=== PATIENT | female | born 1965 | race Two or more races ===

== ENCOUNTER 2017-06-29 21:46 | Inpatient (IN) | payer MEDICARE, OTHER ==
[~2017-06-29] VITALS: Ht 165.1 cm; Wt 80.3 kg
[~2017-06-29 21:46] MED LIST: AMLO10TA4 PO; ARIP10TA15 PO; ARIP20TA10 PO; ATEN50TA PO; BENZ1TAB7 PO; BUPR150T5 PO; CALC500T52 PO; CARI250T PO; CHOL100044 PO; CLON0.5T4 PO; DOCU-270 PO; FENT1PAT10 TD; FOLI1TAB16 PO; HALO5TAB8 PO; HYDR200T PO; HYDR200T4 PO; HYDR50CA PO; IBUP-1482 PO; LEVE500T9 PO; LORA0.5T PO; MORP60TA4 PO; OMEP20CA4 PO; OXYC10TA49 PO; PANT40TA2 PO; PHEN100C4 PO; RISP0.253 PO; SENN8.6T60 PO; SERT100T PO; TEMA15CA5 PO; TOPI200T PO; TRAZ-147 PO; TRAZ150T75 PO
--- NOTE | 2017-06-29 23:12 | NUR ---
MEDSURGE 205-1
[2017-06-29 23:30] LABS: BASOPHILS % (AUTO) 0.2 % (0.0-2.0); EOSINOPHILS # (AUTO) 0.1 /CMM (0.0-0.7); EOSINOPHILS % (AUTO) 1.2 % (0.0-6.0); HEMATOCRIT 39 % (33-45); HEMOGLOBIN 13.1 g/dL (11.5-14.8); LYMPHOCYTES # (AUTO) 3.6 /CMM (0.8-4.8); LYMPHOCYTES % (AUTO) 39.4 % (20.0-44.0); MEAN CORPUSCULAR HEMOGLOBIN 31 PG (26.0-33.0); MEAN CORPUSCULAR HGB CONC 34 g/dl (31.0-36.0); MEAN CORPUSCULAR VOLUME 93 fL (82-100); MONOCYTES # (AUTO) 1.1 /CMM (0.1-1.30); MONOCYTES % (AUTO) 12.4 % (2.0-12.0); NEUTROPHILS # (AUTO) 4.2 /CMM (1.8-8.9); NEUTROPHILS % (AUTO) 46.8 % (43.0-81.0); PLATELET COUNT (AUTO) 309 /CMM (150-450); RED BLOOD CELL COUNT(AUTO) 4.22 MIL/uL (4.0-5.2)
[2017-06-29] MEDS ORDERED: FENTANYL PATCH (100 MCG/HR) 100 MCG/HR PATCH.TD72 TD SCH (23:30)
[2017-06-29] MEDS ORDERED: LORAZEPAM 0.5 MG TABLET PO SCH (23:30)
[2017-06-29] MEDS ORDERED: clonazePAM 0.5 MG TABLET PO PRN (23:30)
[2017-06-29 23:42] LABS: CALCIUM, SERUM 9.5 mg/dL (8.5-10.1); CREATININE 0.6 mg/dL (0.6-1.3); POTASSIUM 3.4 mmol/L (3.5-5.1)
[2017-06-29 23:45] VITALS: BP 128/84
[2017-06-29 23:48] LABS: BILIRUBIN,DIRECT 0.1 mg/dL (0.0-0.2); BILIRUBIN,TOTAL 0.2 mg/dL (0.2-1.0); TOTAL PROTEIN, SERUM 7.3 g/dL (6.4-8.2)
[2017-06-30] VITALS: BP 128/84
--- NOTE | 2017-06-30 | NUR ---
RN NOTE; ADMITTED A 52 Y/O, F, A, OX3. BREATHING EVENLY. NO SOB. NAD. W/ C/O PAIN ON RIGHT HIP. SKIN WARM AND DRY. VS:WNL. SKIN CHECK DONE. NEEDS ATTENDED. BED LOW LOCKED. CALL LIGHT WITHIN REACH. WILL CONT TO MONITOR AND WILL F/U W/ MD'S ORDERS.
[2017-06-30] MEDS ORDERED: MAGNESIUM HYDROXIDE 30 ML UDC PO PRN (00:30)
[2017-06-30] MEDS ORDERED: ENOXAPARIN SODIUM 40 MG/0.4 ML DISP.SYRIN SQ SCH (00:30)
[2017-06-30] MEDS ORDERED: MAG HYDROX/AL HYDROX/SIMETH 30 ML UDC PO PRN (00:30)
[2017-06-30] MEDS ORDERED: ZOLPIDEM TARTRATE 5 MG TABLET PO PRN (00:30)
[2017-06-30] MEDS ORDERED: Z GUARD REMEDY 2 OZ OINT TP PRN (00:30)
[2017-06-30] MEDS ORDERED: ACETAMINOPHEN 325 MG TABLET PO PRN (00:30)
[2017-06-30] MEDS ORDERED: HYDROCODONE/APAP 5/325MG 1 EACH TABLET PO PRN (00:30)
[2017-06-30] MEDS ORDERED: ONDANSETRON HCL/PF 4 MG/2 ML VIAL IVP PRN (00:30)
[2017-06-30] MEDS ORDERED: ENOXAPARIN SODIUM 40 MG/0.4 ML DISP.SYRIN SQ ONE (00:33)
[2017-06-30] MEDS ORDERED: HYDROMORPHONE INJ 2 MG/ML DISP.SYRIN ONE (00:33)
[2017-06-30] MEDS: HYDROMORPHONE INJ 2 MG/ML DISP.SYRIN IV PRN ×4 (00:43→19:19)
--- NOTE | 2017-06-30 00:46 | NUR ---
DILAUDID GIVEN ORDERED PER PT'S REQUEST FOR C/O SEVERE R HIP PAIN. WILL CONT TO MONITOR
[2017-06-30 01:02] LABS: INR 1.07 (0.87-1.13); PROTHROMBIN TIME 26.8 SECS (9.5-12.7)
[2017-06-30 01:06] LABS: AMYLASE 68 U/L (25-115); LIPASE 228 U/L (73-393)
[2017-06-30 01:15] LABS: PARTIAL THROMBOPLASTIN TIME > 170 SEC (23-34)
--- NOTE | 2017-06-30 01:25 | NUR ---
PAGED DR. LION TO RELAY THE PTT RESULT . WILL WAIT FOR HER CALL BACK.
--- NOTE | 2017-06-30 02:07 | NUR ---
PAGED DR LION AGAIN AND RELAYED THE CRITICALLY HIGH APTT RESULT. PER THIS SHOULD NOT BE CORRECT AND REDRAW THE BLOOD. PLACED AN ORDER FOR STAT PTT AND INFORMED THE HISTORIC SITES SUPERVISOR. WILL CONT TO MONITOR .
[2017-06-30] MEDS ORDERED: LORAZEPAM 0.5 MG TABLET ONE (02:57)
--- NOTE | 2017-06-30 03:00 | NUR ---
CALLED [facility] AND REQUESTED THE LIST OF ACTIVE MEDICATIONS TO BE FAXED TO THE HOSPITAL.
--- NOTE | 2017-06-30 03:45 | NUR ---
PT WAS SEEN AND EXAMINED BY DR. LION. THE LIST OF THE MEDICATIONS FROM [facility] WAS SHOWN TO DR. LION. PER MD TO CONTINUE ALL HOME MEDS AND DISCONTINUE WHATEVER HAS ALREADY D/C'd . WILL CONT TO MONITOR .
--- NOTE | 2017-06-30 06:36 | NUR ---
PT IN BED DOZING INTERMITTENTLY. BREATHING EVENLY. NO SOB. NAD. PAIN UNDER CONTROL W/ USE OF PAIN MEDICATIONS. NEEDS ATTENDED. ASSISTED W/ ADLS. CALL LIGHT WITHIN REACH. WILL CONT TO MONITOR AND WILL ENDORSE TO AM SHIFT FOR RIVER.
[2017-06-30 06:40] LABS: APPEARANCE,URINE CLEAR (CLEAR); BILIRUBIN,URINE NEGATIVE (NEGATIVE); BLOOD, URINE NEGATIVE Ery/uL (NEGATIVE); COLOR,URINE YELLOW (YELLOW); KETONES,URINE NEGATIVE (NEGATIVE); LEUKOCYTE ESTERASE ,URINE NEGATIVE (NEGATIVE); NITRITE, URINE NEGATIVE (NEGATIVE); PH,URINE 6.5 (5.0-8.0); PROTEIN,URINE NEGATIVE (NEGATIVE); UGLUCOSE NEGATIVE (NEGATIVE); UROBILINOGEN,URINE 0.2 EU/dL (0.2)
--- NOTE | 2017-06-30 07:09 | NUR ---
DILAUDID GIVEN ORDERED PER PT'S REQUEST FOR C/O SEVERE R HIP PAIN. WILL CONT TO MONITOR
[2017-06-30] MEDS: IPRATROPIUM NEB FS 0.5 MG/2.5 ML AMPUL.NEB NEB SCH ×3 (07:19→19:20)
[2017-06-30] MEDS: ALBUTEROL FS 2.5 MG/3 ML VIAL.NEB NEB SCH ×3 (07:19→19:20)
[2017-06-30] MEDS: PANTOPRAZOLE 40 MG TABLET.DR PO SCH (07:55)
[2017-06-30 08:00] VITALS: BP 124/66
[2017-06-30] MEDS: ARIPIPRAZOLE 5 MG TABLET PO SCH (08:49)
[2017-06-30] MEDS: SERTRALINE HCL 50 MG TABLET PO SCH (08:49)
[2017-06-30] MEDS: LEVETIRACETAM (250 MG) 250 MG TABLET PO SCH ×2 (08:49→21:14)
[2017-06-30] MEDS: BACLOFEN (10 MG) 10 MG TABLET PO SCH ×2 (08:49→16:23)
[2017-06-30] MEDS: CHOLECALCIFEROL 1,000 UNIT TABLET (VIT D3) PO SCH (08:49)
[2017-06-30] MEDS ORDERED: DOCUSATE SODIUM 100 MG CAPSULE PO SCH (09:00)
[2017-06-30] MEDS ORDERED: HYDROXYCHLOROQUINE 200 MG TABLET PO SCH ×2 (09:00)
[2017-06-30] MEDS ORDERED: HALOPERIDOL 5 MG TABLET PO SCH (09:00)
[2017-06-30] MEDS ORDERED: buPROPion SR 150 MG TABLET.ER PO SCH (09:00)
[2017-06-30] MEDS ORDERED: ARIPIPRAZOLE 20 MG PO SCH (09:00)
[2017-06-30] MEDS ORDERED: FOLIC ACID 1 MG TABLET PO SCH (09:00)
[2017-06-30] MEDS ORDERED: SENNOSIDES 8.6 MG TABLET PO SCH (09:00)
[2017-06-30] MEDS ORDERED: BENZTROPINE MESYLATE (1 MG) 1 MG TABLET PO SCH (09:00)
[2017-06-30] MEDS ORDERED: AMLODIPINE BESYLATE 10 MG TABLET PO SCH (09:00)
[2017-06-30] MEDS ORDERED: CALCIUM CARBONATE (1250) 500 MG TABLET PO SCH (09:00)
[2017-06-30] MEDS ORDERED: ATENOLOL 50 MG TABLET PO SCH (09:00)
[2017-06-30] MEDS ORDERED: risperiDONE 0.25 MG TABLET PO SCH ×2 (09:00→22:00)
[2017-06-30] MEDS ORDERED: hydrOXYzine PAMOATE 50 MG CAPSULE PO SCH (09:00)
[2017-06-30 16:00] VITALS: BP 121/70
--- NOTE | 2017-06-30 18:43 | NUR ---
RN CLOSING NOTES NO SIGNIFICANT CHANGES IN PATIENT CONDITION THROUGHOUT THE SHIFT. NO SOB OR DISTRESS NOTED AT THIS TIME. PATIENT DENIES SIGNIFICANT PAIN AT THIS TIME. BED IN A LOW POSITION, CALL LIGHT WITHIN PATIENT REACH. WILL ENDORSE FOR RIVER.
--- NOTE | 2017-06-30 19:00 | NUR ---
MS/RN OPENING NOTES PT RECEIVED IN BED. A/O X 3. TOLERATING ROOM AIR, BREATHING EVEN AND UNLABORED, NO APPARENT SIGN OF DISTRESS. PT APPEARS CALM. BED IN LOW/LOCKED POSITION WITH CALL LIGHT IN REACH. SIDE RAILS UPX2 AND BED ALARM ON FOR SAFETY. WILL CONTINUE TO MONITOR
[2017-06-30 20:00] VITALS: BP 94/46
[2017-06-30 20:06] VITALS: BP 94/46
[2017-06-30] MEDS: TOPIRAMATE 100 MG TABLET PO SCH (21:13)
[2017-06-30] MEDS: PHENYTOIN EXTENDED RELEASE 100 MG CAPSULE PO SCH (21:14)
[2017-06-30] MEDS: TEMAZEPAM 15 MG CAPSULE PO SCH (21:14)
[2017-06-30] MEDS: LORAZEPAM 0.5 MG TABLET PO PRN (21:15)
[2017-06-30] MEDS: ENOXAPARIN SODIUM 40 MG/0.4 ML DISP.SYRIN SQ SCH (21:16)
[2017-06-30] MEDS ORDERED: Medication Not On Formulary EA (Sertraline Hcl (Zoloft) 200 MG) PO SCH (22:00)
[2017-06-30] MEDS ORDERED: PHENYTOIN EXTENDED RELEASE 100 MG CAPSULE PO SCH (22:00)
[2017-07-01] MEDS: IPRATROPIUM NEB FS 0.5 MG/2.5 ML AMPUL.NEB NEB SCH ×4 (01:30→20:37)
[2017-07-01] MEDS: ALBUTEROL FS 2.5 MG/3 ML VIAL.NEB NEB SCH ×4 (01:30→20:37)
--- NOTE | 2017-07-01 01:50 | NUR ---
Pt sleeping at this ,mo Addendum: 07/01/17 at 0151 by TRACEY HARDIN RT patient want to continue resting. no sob or resp distress noted rn aware.
[2017-07-01] MEDS: HYDROMORPHONE INJ 2 MG/ML DISP.SYRIN IV PRN ×4 (02:51→21:22)
--- NOTE | 2017-07-01 06:30 | NUR ---
MS RN CLOSING NOTES PATIENT COMFORTABLY ASLEEP AND EASILY AWAKEN, HOB ELEVATED FOR BETTER LUNG EXPANSION. PATIENT DENIES PAIN AT THIS TIME. RESPIRATIONS EVEN AND UNLABORED. NO S/S OF ACUTE DISTRESS, NO SOB, AFEBRILE, ALL NURSING CARE RENDERED, NEEDS ATTENDED AND ANTICIPATED, KEPT CLEAN AND DRY AND COMFORTABLE, GOOD SKIN ARE PROVIDED. FREQUENT VISUAL CHECK DONE FOR SAFETY EVERY 2 HOURS. SAFE HAZARD FREE ENVIRONMENT PROVIDED. CALL LIGHT WITHIN EASY TO REACH, ON LOW BED AT ALL TIMES TO ENSURE SAFETY, WILL ENDORSE TO THE NEXT SHIFT CONTINUE PLAN OF CARE.
[2017-07-01 06:49] VITALS: BP 110/61
--- NOTE | 2017-07-01 07:26 | NUR ---
MS RN OPENING NOTES PATIENT RECEIVED AWAKE N BED IN ACUTE SIGNS OF DISTRESS. A/O X 3 AND VERBALLY RESPONSIVE, NO C/O PAIN OR DISCOMFORTS AT THIS TIME. ON ROOM AIR, BREATHING EVEN AND UNLABORED. IV ACCESS ON LEFT AC INTACT AND PATENT, HL ONLY. BED IN LOW/LOCKED POSITION WITH CALL LIGHT IN REACH. SIDE RAILS UP X2 AND BED ALARM ON FOR SAFETY. WILL CONTINUE TO MONITOR PT ACCORDINGLY.
[2017-07-01 08:00] VITALS: BP 126/66
[2017-07-01] MEDS: PANTOPRAZOLE 40 MG TABLET.DR PO SCH (08:15)
[2017-07-01] MEDS: SERTRALINE HCL 50 MG TABLET PO SCH (08:15)
[2017-07-01] MEDS: BACLOFEN (10 MG) 10 MG TABLET PO SCH ×2 (08:16→17:23)
[2017-07-01] MEDS: ARIPIPRAZOLE 5 MG TABLET PO SCH (08:16)
[2017-07-01] MEDS: LEVETIRACETAM (250 MG) 250 MG TABLET PO SCH ×2 (08:16→21:28)
[2017-07-01] MEDS: CHOLECALCIFEROL 1,000 UNIT TABLET (VIT D3) PO SCH (08:17)
[2017-07-01 11:53] LABS: BASOPHILS % (AUTO) 0.5 % (0.0-2.0); EOSINOPHILS # (AUTO) 0.1 /CMM (0.0-0.7); EOSINOPHILS % (AUTO) 1.4 % (0.0-6.0); HEMATOCRIT 40 % (33-45); HEMOGLOBIN 13.3 g/dL (11.5-14.8); LYMPHOCYTES # (AUTO) 3.7 /CMM (0.8-4.8); LYMPHOCYTES % (AUTO) 43.8 % (20.0-44.0); MEAN CORPUSCULAR HEMOGLOBIN 31 PG (26.0-33.0); MEAN CORPUSCULAR HGB CONC 33 g/dl (31.0-36.0); MEAN CORPUSCULAR VOLUME 94 fL (82-100); MONOCYTES # (AUTO) 0.9 /CMM (0.1-1.30); MONOCYTES % (AUTO) 11.2 % (2.0-12.0); NEUTROPHILS # (AUTO) 3.6 /CMM (1.8-8.9); NEUTROPHILS % (AUTO) 43.1 % (43.0-81.0); PLATELET COUNT (AUTO) 307 /CMM (150-450); RDW COEFFICIENT OF VARIATION 12.9 (11.5-15.0); RED BLOOD CELL COUNT(AUTO) 4.27 MIL/uL (4.0-5.2); WHITE BLOOD COUNT (AUTO) 8.4 K/uL (4.3-11.0)
[2017-07-01 12:11] LABS: ALBUMIN 3.7 g/dL (3.4-5.0); BILIRUBIN,TOTAL 0.2 mg/dL (0.2-1.0); CALCIUM, SERUM 9.3 mg/dL (8.5-10.1); CREATININE 0.6 mg/dL (0.6-1.3); MAGNESIUM 1.9 mg/dL (1.8-2.4); PHOSPHORUS 3.9 mg/dL (2.5-4.9); POTASSIUM 3.5 mmol/L (3.5-5.1); TOTAL PROTEIN, SERUM 6.8 g/dL (6.4-8.2)
[2017-07-01 12:16] LABS: THYROID STIMULATING HORMONE 2.031 uIU/mL (0.358-3.74)
[2017-07-01 16:00] VITALS: BP 120/66
--- NOTE | 2017-07-01 19:00 | NUR ---
MS/RN OPENING NOTES PT RECEIVED IN BED. A/O X 3. STABLE CONDITION. BREATHING EVEN AND UNLABORED, TOLERATING ROOM AIR 99% NO APPARENT SIGN OF DISTRESS. BED IN LOW/LOCKED POSITION WITH CALL LIGHT IN REACH. SIDE RAILS UPX2 AND BED ALARM ON FOR SAFETY. WILL CONTINUE TO MONITOR
--- NOTE | 2017-07-01 19:01 | NUR ---
MS RN CLOSING NOTES PATIENT IN BED RESTING @ MODERATE HIGH BACKREST POSITION WATCHING TV. A/O X 3 AND VERBALLY RESPONSIVE. PT C/O PAIN TO RIGHT HIP ON AND OFF DURING THE DAY, PRN DILAUDID 2MG GIVEN IVP WITH POSITIVE RESULTS. ALL NEEDS AND CARE ATTENDED WELL. . ON ROOM AIR, BREATHING EVEN AND UNLABORED. IV ACCESS ON LEFT AC INTACT AND PATENT, HL ONLY. KEPT BED IN LOW/LOCKED POSITION WITH CALL LIGHT AND BEDSIDE TABLE IN REACH. SIDE RAILS UP X2 AND BED ALARM ON FOR SAFETY. WILL ENDOSRED TO TOOLING MECHANIC NURSE FOR RIVER. .
[2017-07-01 20:00] VITALS: BP 125/67
[2017-07-01] MEDS: TOPIRAMATE 100 MG TABLET PO SCH (21:25)
[2017-07-01] MEDS: TEMAZEPAM 15 MG CAPSULE PO SCH (21:26)
[2017-07-01] MEDS: PHENYTOIN EXTENDED RELEASE 100 MG CAPSULE PO SCH (21:26)
[2017-07-01] MEDS: ENOXAPARIN SODIUM 40 MG/0.4 ML DISP.SYRIN SQ SCH (21:28)
[2017-07-02] MEDS: IPRATROPIUM NEB FS 0.5 MG/2.5 ML AMPUL.NEB NEB SCH ×3 (02:04→13:46)
[2017-07-02] MEDS: ALBUTEROL FS 2.5 MG/3 ML VIAL.NEB NEB SCH ×3 (02:04→13:46)
[2017-07-02] MEDS: HYDROMORPHONE INJ 2 MG/ML DISP.SYRIN IV PRN ×3 (04:00→16:16)
--- NOTE | 2017-07-02 06:40 | NUR ---
MS RN CLOSING NOTES PT ASLEEP EASILY AWAKEN, HEAD OF BED ELEVATED FOR BETTER LUNG EXPANSION. IN STABLE CONDITION. TOLERATING ROOM AIR 02 SAT AT 99%. NO S/S OF ACUTE DISTRESS, NO SOB, RESPIRATIONS EVEN AND UNLABORED. PATIENT DENIES PAIN AT THIS TIME.. AFEBRILE, ALL NURSING CARE RENDERED, NEEDS ATTENDED AND ANTICIPATED, KEPT CLEAN AND DRY AND COMFORTABLE, GOOD SKIN CARE PROVIDED. SAFETY HAZARD FREE ENVIRONMENT.. CALL LIGHT WITHIN EASY TO REACH, ON LOW BED AT ALL TIMES TO ENSURE SAFETY, WILL ENDORSE TO THE NEXT SHIFT CONTINUE PLAN OF CARE.
--- NOTE | 2017-07-02 07:43 | NUR ---
MS RN OPENING NOTES PATIENT RECEIVED AWAKE AND COMFORTABLY RESTING IN BED. A/O X 3, ABLE TO VERBALIZED NEEDS, NO C/O PAIN OR DISCOMFORTS AT THIS TIME. ON ROOM AIR, BREATHING EVEN AND UNLABORED. IV ACCESS ON LEFT AC INTACT AND PATENT, HL ONLY. BED IN LOW/LOCKED POSITION. BEDSIDE TABLE AND CALL LIGHT WITH IN REACH OF PT. SIDE RAILS UP X2 AND BED ALARM ON FOR SAFETY. WILL CONTINUE TO MONITOR PT ACCORDINGLY.
[2017-07-02 08:00] VITALS: BP 112/64
[2017-07-02] MEDS: ARIPIPRAZOLE 5 MG TABLET PO SCH (08:10)
[2017-07-02] MEDS: PANTOPRAZOLE 40 MG TABLET.DR PO SCH (08:10)
[2017-07-02] MEDS: LEVETIRACETAM (250 MG) 250 MG TABLET PO SCH (08:10)
[2017-07-02] MEDS: SERTRALINE HCL 50 MG TABLET PO SCH (08:10)
[2017-07-02] MEDS: BACLOFEN (10 MG) 10 MG TABLET PO SCH ×2 (08:10→16:17)
[2017-07-02] MEDS: CHOLECALCIFEROL 1,000 UNIT TABLET (VIT D3) PO SCH (08:11)
[2017-07-02] MEDS ORDERED: HALO5TAB8 PO (10:39)
[2017-07-02] MEDS ORDERED: IBUP-1482 PO (10:39)
[2017-07-02] MEDS: LORAZEPAM 0.5 MG TABLET PO PRN (11:40)
--- NOTE | 2017-07-02 11:41 | NUR ---
RN NOTES PATIENT NOTED RESTLESS AND ANXIOUS , PRN ATIVAN 0.5MG GIVEN ORDERED. WILL CONTINUE TO MONITOR.
[2017-07-02 16:00] VITALS: BP 115/69
--- NOTE | 2017-07-02 18:23 | NUR ---
RN DISCHARGED NOTES PT DISCHARGED TO [facility] IN STABLE CONDITION. REPORT GIVEN TO BECKY NURSE RELIABILITY TECHNOLOGIST. PT JUST LEFT UNIT VIA GUNEY ACCOMPANIED BY 2 EMT'S. A/O X3, NO ACUTE SIGNS OF DISTRESS, NO C/O PAIN OR DISCOMFORTS VOICED DURING DISCHARGE. V/S TAKEN AND RECORDED. SKIN IS INTACT. NO BELONGINGS BROUGHT WITH HER WHEN ADMITTED. NO FLU/PNA VACCINES GIVEN PT RECEIVED THEM ALREADY THIS YEAR. HEALTH TEACHINGS GIVEN AND VERBALIZED UNDERSTANDING. MD AND NURSE RELIABILITY TECHNOLOGIST AWARE OF DISCHARGE.
== END 2017-07-02 18:31 | DRG 556 ==
LOC: ER 21:48 → MEDSG2 23:42
PROVIDERS: ADMIT Internal Medicine; ATTEND Internal Medicine
DX: M25.551 Pain in right hip (principal); E87.8 Other disorders of electrolyte and fluid balance, not elsewhere classified; I11.0 Hypertensive heart disease with heart failure; I50.32 Chronic diastolic (congestive) heart failure; F20.9 Schizophrenia, unspecified; G40.909 Epilepsy, unspecified, not intractable, without status epilepticus; J44.9 Chronic obstructive pulmonary disease, unspecified; K21.9 Gastro-esophageal reflux disease without esophagitis; Z87.891 Personal history of nicotine dependence; Z96.641 Presence of right artificial hip joint; Z88.0 Allergy status to penicillin
CPT/HCPCS: 36415; 71010-TC; 73502; 80048-TC; 80053-TC; 80061-TC; 80076-TC; 81000-TC; 82150-TC; 82746; 83540-TC; 83690-TC; 83735-TC; 84100-TC; 84443-TC; 85025-TC; 85730-TC; 87040-TC; 87081-TC; 87086-TC; 93307-TC; 93970-TC; A4606; J1170; J1650; Q0177; Z7610

== ENCOUNTER 2019-04-21 16:32 | Emergency (ER) | payer MEDICARE, OTHER ==
[~2019-04-21] VITALS: Ht 165.1 cm; Wt 111.6 kg
[2019-04-21 16:32] VITALS: BP 154/94
[~2019-04-21 16:32] MED LIST changes: -ARIP10TA15 PO; +ARIP10TA9 PO; +CLON0.5T12 PO; -CLON0.5T4 PO; -FENT1PAT10 TD; -HYDR200T PO; +HYDR200T81 PO; -IBUP-1482 PO; +IBUP-1957 PO; -TRAZ-147 PO; +TRAZ-214 PO
[2019-04-21] MEDS ORDERED: DILT120T2 PO (16:52)
[2019-04-21] MEDS ORDERED: FURO40TA5 PO (16:52)
[2019-04-21] MEDS ORDERED: IBUP-1953 PO (16:52)
[2019-04-21] MEDS ORDERED: LURA80TA PO (16:52)
[2019-04-21] MEDS ORDERED: BENZ1TAB7 PO (16:52)
[2019-04-21] MEDS ORDERED: QUET25TA PO (16:52)
[2019-04-21] MEDS ORDERED: ASPI-1152 PO (16:52)
[2019-04-21] MEDS ORDERED: MULT-24 PO (16:52)
[2019-04-21] MEDS ORDERED: DICL100G16 TP (16:52)
[2019-04-21] MEDS ORDERED: HYDR-4354 PO (16:52)
[2019-04-21] MEDS ORDERED: MAGN400O6 PO (16:57)
[2019-04-21] MEDS ORDERED: ZOLP10TA6 PO (16:57)
[2019-04-21] MEDS ORDERED: HYDR4TAB57 PO (16:57)
[2019-04-21] MEDS ORDERED: IPRA3AMP23 IH (16:57)
[2019-04-21] MEDS ORDERED: MORP20SO PO (16:58)
[2019-04-21 17:03] LABS: APPEARANCE,URINE Turbid (CLEAR); BILIRUBIN,URINE Negative (NEGATIVE); BLOOD, URINE Large Ery/uL (NEGATIVE); COLOR,URINE Red (YELLOW); KETONES,URINE Negative (NEGATIVE); LEUKOCYTE ESTERASE ,URINE Moderate (NEGATIVE); NITRITE, URINE Negative (NEGATIVE); PH,URINE 5.5 (5.0-8.0); PROTEIN,URINE Trace mg/dl (NEGATIVE); UGLUCOSE Negative (NEGATIVE); UROBILINOGEN,URINE 0.2 EU/dL (0.2)
[2019-04-21 17:25] LABS: RBC,URINE TOO NUMEROUS TO COUN /HPF (0-2)
[2019-04-21 17:26] LABS: BACTERIA,URINE Many /HPF (None Seen); SQUAMOUS EPITHELIAL CELL,UR Few /HPF (None Seen)
[2019-04-21] MEDS ORDERED: LEVOFLOXACIN (750 MG) 750 MG TABLET PO SCH (17:30)
[2019-04-21] MEDS ORDERED: HYDROCODONE/APAP 10/325MG 1 EA TABLET ONE (17:44)
[2019-04-21] MEDS ORDERED: LEVOFLOXACIN (750 MG) 750 MG TABLET ONE (17:45)
--- NOTE | 2019-04-21 17:54 | NUR ---
[facility] MUN[facility] 1930 TRIP# [id number]
[2019-04-21] MEDS ORDERED: HYDROCODONE/APAP 10/325MG 1 EA TABLET PO ONE (18:00)
== END 2019-04-21 19:25 ==
LOC: ER 16:34
DX: N39.0 Urinary tract infection, site not specified (principal); E66.01 Morbid (severe) obesity due to excess calories; M32.9 Systemic lupus erythematosus, unspecified; I10 Essential (primary) hypertension; M19.90 Unspecified osteoarthritis, unspecified site; F17.200 Nicotine dependence, unspecified, uncomplicated; Z98.890 Other specified postprocedural states; Z88.0 Allergy status to penicillin; Z88.5 Allergy status to narcotic agent; Z79.899 Other long term (current) drug therapy; Z79.82 Long term (current) use of aspirin; Z68.41 Body mass index [BMI] 40.0-44.9, adult
CPT/HCPCS: 81000-TC; 87086-TC; 87186-TC

== ENCOUNTER 2019-05-08 16:52 | Emergency (ER) | payer MEDICARE, OTHER ==
[~2019-05-08] VITALS: Ht 165.1 cm; Wt 112.5 kg
[~2019-05-08 16:52] MED LIST changes: -AMLO10TA4 PO; -ARIP10TA9 PO; -ARIP20TA10 PO; +ASPI-1152 PO; -ATEN50TA PO; -BUPR150T5 PO; -CALC500T52 PO; -CARI250T PO; -CHOL100044 PO; -CLON0.5T12 PO; +DICL100G16 TP; +DILT120T2 PO; -DOCU-270 PO; -FOLI1TAB16 PO; +FURO40TA5 PO; -HALO5TAB8 PO; +HYDR-4354 PO; -HYDR200T4 PO; -HYDR200T81 PO; +HYDR4TAB57 PO; -HYDR50CA PO; +IBUP-1953 PO; -IBUP-1957 PO; +IPRA3AMP23 IH; +LURA80TA PO; +MAGN400O6 PO; +MORP20SO PO; -MORP60TA4 PO; +MULT-24 PO; -OMEP20CA4 PO; -OXYC10TA49 PO; -PHEN100C4 PO; +QUET25TA PO; -RISP0.253 PO; -SENN8.6T60 PO; -SERT100T PO; -TEMA15CA5 PO; -TOPI200T PO; -TRAZ-214 PO; -TRAZ150T75 PO; +ZOLP10TA6 PO
--- NOTE | 2019-05-08 17:00 | NUR ---
[id number] FROM [facility], HAD SYNCOPAL EPISODE "SHOOK THEN BECAME UNRESPONSIVE", -TRAUMA. TO ER BED 10, HOOKED TO MONITOR, CHANGED TO GOWN, PROVIDED W WARM BLANKET, AWAITING MD LOPEZ.
--- NOTE | 2019-05-08 17:08 | NUR ---
DR HARRIS AT BEDSIDE
[2019-05-08] MEDS ORDERED: IBUP-1953 PO (17:20)
[2019-05-08] MEDS ORDERED: BENZ1TAB7 PO (17:20)
[2019-05-08] MEDS ORDERED: HYDR4TAB57 PO (17:20)
[2019-05-08] MEDS ORDERED: MULT-439 PO (17:20)
[2019-05-08] MEDS ORDERED: SENN-168 PO (17:21)
[2019-05-08] MEDS ORDERED: PROM118S4 PO (17:21)
[2019-05-08 18:13] LABS: BASOPHILS # (AUTO) 0.1 /CMM (0.0-0.2); BASOPHILS % (AUTO) 0.7 % (0.0-2.0); EOSINOPHILS % (AUTO) 2.9 % (0.0-6.0); HEMATOCRIT 34 % (33-45); HEMOGLOBIN 11.4 g/dL (11.5-14.8); LYMPHOCYTES # (AUTO) 4.1 /CMM (0.8-4.8); LYMPHOCYTES % (AUTO) 35.9 % (20.0-44.0); MEAN CORPUSCULAR HGB CONC 34 g/dl (31.0-36.0); MEAN CORPUSCULAR VOLUME 94 fL (82-100); MONOCYTES # (AUTO) 1.7 /CMM (0.1-1.30); MONOCYTES % (AUTO) 14.5 % (2.0-12.0); NEUTROPHILS # (AUTO) 5.2 /CMM (1.8-8.9); PLATELET COUNT (AUTO) 320 /CMM (150-450); RED BLOOD CELL COUNT(AUTO) 3.56 MIL/uL (4.0-5.2); WHITE BLOOD COUNT (AUTO) 11.4 K/uL (4.3-11.0)
[2019-05-08 18:22] LABS: CALCIUM, SERUM 9.2 mg/dL (8.5-10.1); CARBON DIOXIDE 28 mmol/L (21-32); CHLORIDE 100 mmol/L (98-107); CREATININE 0.7 mg/dL (0.6-1.3); GLUCOSE 95 mg/dL (74-106); POTASSIUM 3.8 mmol/L (3.5-5.1); SODIUM SERUM 130 mmol/L (136-145); UREA NITROGEN, BLOOD 16 mg/dL (7-18)
[2019-05-08 18:27] LABS: ALANINE AMINOTRANSFERASE 13 U/L (12-78); ALKALINE PHOSPHATASE 64 U/L (46-116); ASPARTATE AMINOTRANSFERASE 22 U/L (15-37); BILIRUBIN,DIRECT 0.1 mg/dL (0.0-0.2); BILIRUBIN,TOTAL 0.3 mg/dL (0.2-1.0); TOTAL PROTEIN, SERUM 6.6 g/dL (6.4-8.2)
[2019-05-08] MEDS ORDERED: ONDANSETRON HCL/PF 4 MG/2 ML VIAL ONE (18:27)
[2019-05-08] MEDS ORDERED: HYDROMORPHONE 1 MG/1 ML DISP.SYRIN ONE ×2 (18:27→21:58)
[2019-05-08] MEDS ORDERED: HYDROMORPHONE 1 MG/1 ML DISP.SYRIN IV ONE ×2 (18:30→22:00)
[2019-05-08] MEDS ORDERED: IV NS 0.9% 1,000 ML BAG IV ONE (18:30)
[2019-05-08] MEDS ORDERED: ONDANSETRON HCL/PF - ER 4 MG/2 ML VIAL IV ONE (18:30)
--- NOTE | 2019-05-08 19:15 | NUR ---
REPORT GIVEN TO JESSA ROMEO FOR RIVER
--- NOTE | 2019-05-08 19:15 | NUR ---
REPORT GIVEN TO JESSA ROMEO FOR RIVER
--- NOTE | 2019-05-08 19:30 | NUR ---
PT TO CT ON [place]
[2019-05-08] MEDS ORDERED: IOHEXOL-350 100 ML VIAL IV ONE (19:35)
[2019-05-08] MEDS ORDERED: KETOROLAC TROMETHAMINE INJ 30 MG/ML VIAL ONE (20:51)
[2019-05-08] MEDS ORDERED: KETOROLAC TROMETHAMINE INJ 30 MG/ML VIAL IV ONE (21:00)
--- NOTE | 2019-05-08 21:12 | NUR ---
CALLED [facility] FOR TRANSPORTATION. ETA 2200, TRIP [id number]
--- NOTE | 2019-05-08 22:09 | NUR ---
CALLED FACILITY TO INFORM PT IS COMING BACK TO FACILITY. SPOKE WITH GHASSAN, CAREGIVER AT THE FACILITY
--- NOTE | 2019-05-08 22:17 | NUR ---
[facility] #[phone] AT BEDSIDE FOR TRANSPORT BACK TO [facility]. PT IS STABLE FOR TRANSPORT. NAD NOTED. REPORT GIVEN
[2019-05-08 22:19] VITALS: BP 111/67
== END 2019-05-08 22:19 | disposition home or self-care (01) ==
LOC: ER 16:53
DX: G40.909 Epilepsy, unspecified, not intractable, without status epilepticus (principal); R51 Headache; I10 Essential (primary) hypertension; M32.9 Systemic lupus erythematosus, unspecified; F17.200 Nicotine dependence, unspecified, uncomplicated; Z98.890 Other specified postprocedural states; Z88.0 Allergy status to penicillin; Z88.5 Allergy status to narcotic agent; Z79.899 Other long term (current) drug therapy; Z79.82 Long term (current) use of aspirin
CPT/HCPCS: 36415; 70450; 70496; 71045; 80048; 80076; 84484; 85025; 85730; 93005; 96374; 96375; 96376; 99284; J1170 ×2; J1885; J2405 ×2; J7030; Q9967

== ENCOUNTER 2020-01-07 20:29 | Inpatient (IN) | payer MEDICARE, OTHER ==
[~2020-01-07] VITALS: Ht 165.1 cm; Wt 101.2 kg
[~2020-01-07 20:29] MED LIST changes: -MORP20SO PO; -MULT-24 PO; +MULT-439 PO; +PROM118S5 PO; +SENN-261 PO
--- NOTE | 2020-01-07 20:49 | NUR ---
BIB PA C/O R SHOULDER BLADE REDNESS, SWELLING AND BLISTER X4-5 DAYS. PER PT IT STARTED A PIMPLE LIKE AND WORSENED IN THE PAST 4-5DAYS.
--- NOTE | 2020-01-07 21:07 | NUR ---
PAGED DR. NUR
--- NOTE | 2020-01-07 21:14 | NUR ---
LAC 20G PIV LINE STARTED. UNABLE TO DRAW BLOOD . FLOOR GRINDER AT THE BED SIDE FOR BLOOD DRAW
[2020-01-07] MEDS ORDERED: POTA20TA83 PO (21:30)
[2020-01-07] MEDS ORDERED: CLINDAMYCIN IV RTU IN D5W 900 MG/50 ML PIGGYBACK IV ONE (21:30)
[2020-01-07] MEDS ORDERED: CLINDAMYCIN 900 MG/6 ML VIAL ONE ×2 (21:32→21:33)
[2020-01-07 21:44] LABS: BASOPHILS # (AUTO) 0.1 /CMM (0.0-0.2); BASOPHILS % (AUTO) 0.9 % (0.0-2.0); EOSINOPHILS % (AUTO) 3.2 % (0.0-6.0); HEMATOCRIT 41 % (33-45); HEMOGLOBIN 13.2 g/dL (11.5-14.8); LYMPHOCYTES # (AUTO) 3.5 /CMM (0.8-4.8); LYMPHOCYTES % (AUTO) 35.7 % (20.0-44.0); MEAN CORPUSCULAR HGB CONC 32 g/dl (31.0-36.0); MEAN CORPUSCULAR VOLUME 93 fL (82-100); MONOCYTES # (AUTO) 1.3 /CMM (0.1-1.30); MONOCYTES % (AUTO) 13.6 % (2.0-12.0); NEUTROPHILS # (AUTO) 4.6 /CMM (1.8-8.9); NEUTROPHILS % (AUTO) 46.6 % (43.0-81.0); PLATELET COUNT (AUTO) 344 /CMM (150-450); RED BLOOD CELL COUNT(AUTO) 4.42 MIL/uL (4.0-5.2); WHITE BLOOD COUNT (AUTO) 9.9 K/uL (4.3-11.0)
--- NOTE | 2020-01-07 21:50 | NUR ---
ER DOC ON PHONE WITH HOSPITALIST
--- NOTE | 2020-01-07 21:53 | NUR ---
PT W/ C/O HIP PAIN AND REQUESTING DILAUDID. DR HUTSON MADE AWARE W/ A VERBAL ORDER FOR NORCO 10-325. PT NOTED W. ALLERGY TO CODEINE. SPOKE TO THE PT REGARDING NORCO ORDER. PT REFUSED TAKING NORCO AND REQUESTING DILAUDID ONLY. STATED NORCO WILL NOT DO ANY HELP.
[2020-01-07] MEDS ORDERED: HYDROCODONE/APAP 10/325MG 1 EA TABLET PO ONE (22:00)
--- NOTE | 2020-01-07 22:02 | NUR ---
REPORT GIVEN TO [place] ON THIRD FLOOR
[2020-01-07 22:40] LABS: CALCIUM, SERUM 9.2 mg/dL (8.5-10.1); CREATININE 0.9 mg/dL (0.6-1.3); POTASSIUM 4.3 mmol/L (3.5-5.1)
--- NOTE | 2020-01-07 22:40 | NUR ---
CALLED [facility] FOR READ ON CXR
--- NOTE | 2020-01-07 22:56 | NUR ---
PT WAS TRANSFERRED TO THE THIRD FLOOR IN STABLE CONDITION.
[2020-01-07 23:00] VITALS: BP 109/66
[2020-01-07] MEDS ORDERED: MAG HYDROX/AL HYDROX/SIMETH 30 ML UDC PO PRN (23:00)
[2020-01-07] MEDS ORDERED: HYDROCODONE/APAP 5/325MG 1 EACH TABLET PO PRN (23:00)
[2020-01-07] MEDS ORDERED: ACETAMINOPHEN 325 MG TABLET PO PRN (23:00)
[2020-01-07] MEDS ORDERED: CLINDAMYCIN IV RTU IN D5W 900 MG/50 ML PIGGYBACK IV SCH (23:00)
[2020-01-07] MEDS ORDERED: Z GUARD REMEDY 2 OZ OINT TP PRN (23:00)
[2020-01-07] MEDS ORDERED: MAGNESIUM HYDROXIDE 30 ML UDC PO PRN (23:00)
--- NOTE | 2020-01-07 23:12 | NUR ---
MS RN ADMITTING NOTES PATIENT RECEIVED FROM ER VIA WHEELCHAIR ACCOMPANIED BY ER STAFF. A/O X4, ABLE TO MAKE NEEDS KNOWN. PATIENT AMBULATORY WITH ASSIST. IV LOCATED ON LAC #20. ORDERS SAY PATIENT REMAIN NPO. SKIN ASSESSMENT DONE. NO SIGNS OF ACUTE DISTRESS. COMPLAINTS OF SLIGHT PAIN AND DISCOMFORT. BELONGINGS ACCOUNTED FOR. ORIENTED TO ROOM AND STAFF. SAFETY PRECAUTIONS IN PLACE WITH BED IN LOWEST POSITION, CALL LIGHT WITHIN REACH, BREAKS ON, SIDE RAILS UP. WILL CONTINUE TO MONITOR.
[2020-01-08] MEDS: IV D5/0.45 NACL 1,000 ML IV PRN (00:15)
[2020-01-08] MEDS: MORPHINE SULFATE INJ 2 MG/ML DISP.SYRIN IV PRN ×4 (00:26→20:37)
[2020-01-08] MEDS ORDERED: HYDR4TAB57 PO (02:08)
[2020-01-08] MEDS ORDERED: CLINDAMYCIN 900 MG/6 ML VIAL ONE (05:18)
[2020-01-08] MEDS: CLINDAMYCIN 900 MG in IV D5W 50 ML IV SCH ×3 (05:29→20:39)
--- NOTE | 2020-01-08 06:45 | NUR ---
MS RN CLOSING NOTES PATIENT IN BED RESTING, A/O X 4. STABLE ON RA WITH BREATHING EVEN AND UNLABORED, NO SOB NOTED. NO SIGNS OF ACUTE DISTRESS. NO COMPLAINTS OF PAIN OR DISCOMFORT. IV LOCATED ON L AC #20 RUNNING D5 1/2 NS @ 75 ML/HR. PATIENT KEPT NPO THROUGH OUT THE NIGHT. SAFETY PRECAUTIONS IN PLACE WITH BED IN LOWEST POSITION, CALL LIGHT WITHIN REACH, BREAKS ON, SIDE RAILS UP. WILL ENDORSE TO ONCOMING SHIFT ABOUT RIVRE.
--- NOTE | 2020-01-08 07:42 | NUR ---
RN OPENING NOTE Patient is resting in bed, A/O x4, showing no signs of acute distress or SOB, stable on RA. Patient has no complaints of pain at this time. IV line in the LAC #20g is running D51/2 NS @ 75ml/hour. Patient is NPO except meds due to possible procedure today for abscess in the upper left side of the back. Bed is in lowest position, side rails x3 in upright position, call light is within reach and patient is aware of how to call for assistance when needed. Fall, safety and aspiration precautions enforced. Wall continue with plan of care.
[2020-01-08 07:56] LABS: BASOPHILS # (AUTO) 0.1 /CMM (0.0-0.2); BASOPHILS % (AUTO) 1.6 % (0.0-2.0); EOSINOPHILS % (AUTO) 3.4 % (0.0-6.0); HEMATOCRIT 37 % (33-45); HEMOGLOBIN 12.3 g/dL (11.5-14.8); LYMPHOCYTES # (AUTO) 2.2 /CMM (0.8-4.8); LYMPHOCYTES % (AUTO) 36.8 % (20.0-44.0); MEAN CORPUSCULAR HGB CONC 33 g/dl (31.0-36.0); MEAN CORPUSCULAR VOLUME 93 fL (82-100); MONOCYTES # (AUTO) 0.7 /CMM (0.1-1.30); MONOCYTES % (AUTO) 12.2 % (2.0-12.0); NEUTROPHILS # (AUTO) 2.7 /CMM (1.8-8.9); PLATELET COUNT (AUTO) 97 /CMM (150-450); RED BLOOD CELL COUNT(AUTO) 3.97 MIL/uL (4.0-5.2); WHITE BLOOD COUNT (AUTO) 5.9 K/uL (4.3-11.0)
[2020-01-08 08:00] VITALS: BP 136/83
[2020-01-08] MEDS: HYDROMORPHONE HCL 2 MG TABLET PO PRN ×2 (08:04→17:06)
[2020-01-08 08:26] LABS: CALCIUM, SERUM 9.2 mg/dL (8.5-10.1); CREATININE 0.8 mg/dL (0.6-1.3); MAGNESIUM 2.1 mg/dL (1.8-2.4); PHOSPHORUS 5.2 mg/dL (2.5-4.9); POTASSIUM 4.7 mmol/L (3.5-5.1)
[2020-01-08 08:57] LABS: THYROID STIMULATING HORMONE 1.536 uIU/mL (0.358-3.74)
--- NOTE | 2020-01-08 10:25 | NUR ---
WOUND CARE CONSULT: PT PRESENTS WITH RED RAISED AREA TO UPPER BACK WITH SOME PURULENT DRAINAGE, PRESENT ON ADMISSION. SPOKE WITH EP TECH REGARDING POSSIBLE SURGICAL CONSULT. DEFER TO PMD FOR SURGICAL CONSULT. RECOMMENDATIONS MADE FOR SKIN PROTECTION/WOUND CARE. DISCUSSED WITH NURSING STAFF. PT IS INDEPENDENT WITH BED MOBILITY AND CONTINENT. WILL SEE PRN.
[2020-01-08 10:59] VITALS: BP 121/77
[2020-01-08 13:00] VITALS: BP 130/82
[2020-01-08 16:00] VITALS: BP 132/84
--- NOTE | 2020-01-08 17:31 | NUR ---
RN NOTE IV in the LAC infiltrated this afternoon. 3 Rn's attempted IV insertion with Vein finder was not able to get a line. OK per CATHODE RAY TUBE SALVAGE PROCESSOR Mariam Travis for midline insertion. Patient stated that she has had a midline during her previous hospitalization. Nursing payroll supervisor aware, waiting for a ETA for midline nurse.
--- NOTE | 2020-01-08 19:09 | NUR ---
RN CLOSING NOTE Patient is resting in bed, A/O x4, showing no signs of acute distress or SOB, stable on RA. Patient has no IV line at this time, Midline nurse Van is expected to arrive around 1930 per nursing supervisor costuming. Patient is NPO after midnight. Patient allowed to eat dinner per DESIGNER ARCHITECT. Procedure expected tomorrow in AM, per DESIGNER ARCHITECT, it has not been decided if it will be in the OR or at the bedside. All patient needs met, all due medication given, patient kept clean and dry throughout shift. Bed is in lowest position, side rails x3 in upright position, call light is within reach and patient is aware of how to call for assistance when needed. Fall, safety and aspiration precautions enforced. Will endorse to weight shifter. .
--- NOTE | 2020-01-08 19:50 | NUR ---
RN NOTES RECEIVED PATIENT, AWAKE ALERT ORIENTED X4. RESTING COMFORTABLY, NO SIGNS OF ACUTE DISTRESS NOTED. REPOSITIONED FOR COMFORT. SAFETY MEASURES IN PLACE, CALL LIGHT WITHIN EASY REACH. BED IN LOW LOCKED POSITION. ASPIRATION PRECAUTION EMPHASIZE. AWAITING FOR SYDNEY, FOR MIDLINE INSERTION. DENIES ANY PAIN OR DISCOMFORT AT THIS TIME. WILL CONTINUE TO MONITOR ACCORDINGLY.
[2020-01-08 20:00] VITALS: BP 136/88
[2020-01-08 20:07] VITALS: BP 136/88
[2020-01-08] MEDS: ZOLPIDEM TARTRATE 5 MG TABLET PO PRN (23:24)
[2020-01-09] MEDS: MORPHINE SULFATE INJ 2 MG/ML DISP.SYRIN IV PRN ×5 (02:45→21:31)
[2020-01-09] MEDS: CLINDAMYCIN 900 MG in IV D5W 50 ML IV SCH ×3 (04:56→21:15)
[2020-01-09] MEDS: IV D5/0.45 NACL 1,000 ML IV PRN (05:22)
[2020-01-09] MEDS: ONDANSETRON HCL/PF 4 MG/2 ML VIAL IVP PRN ×2 (06:00→21:21)
[2020-01-09 06:10] LABS: BASOPHILS # (AUTO) 0.1 /CMM (0.0-0.2); BASOPHILS % (AUTO) 0.6 % (0.0-2.0); HEMATOCRIT 41 % (33-45); HEMOGLOBIN 13.4 g/dL (11.5-14.8); LYMPHOCYTES # (AUTO) 2.8 /CMM (0.8-4.8); MEAN CORPUSCULAR HGB CONC 33 g/dl (31.0-36.0); MEAN CORPUSCULAR VOLUME 92 fL (82-100); MONOCYTES # (AUTO) 1.2 /CMM (0.1-1.30); MONOCYTES % (AUTO) 13.1 % (2.0-12.0); NEUTROPHILS # (AUTO) 5.2 /CMM (1.8-8.9); NEUTROPHILS % (AUTO) 55.3 % (43.0-81.0); PLATELET COUNT (AUTO) 399 /CMM (150-450); RED BLOOD CELL COUNT(AUTO) 4.45 MIL/uL (4.0-5.2); WHITE BLOOD COUNT (AUTO) 9.4 K/uL (4.3-11.0)
--- NOTE | 2020-01-09 06:22 | NUR ---
RN NOTES ALL NEEDS ATTENDED AND MET, ABLE TO REST AND SLEPT AT INTERVALS, VOMITTED A YELLOWISH GASTRIC JUICE APPROXIMATELY 20 ML. ZOFRAN GIVEN ORDERED AT 0600. WILL CONTINUE TO MONITOR. NPO SINCE 01/09/20 12 MIDNIGHT. SAFETY MEASURES IN PLACE, ASPIRATION PRECAUTION EMPHASIZED. WILL ENDORSE TO AM NURSE FOR CONTINUITY OF CARE.
[2020-01-09 06:38] LABS: CALCIUM, SERUM 9.2 mg/dL (8.5-10.1); CREATININE 0.6 mg/dL (0.6-1.3); MAGNESIUM 2.2 mg/dL (1.8-2.4); PHOSPHORUS 3.9 mg/dL (2.5-4.9); POTASSIUM 4.4 mmol/L (3.5-5.1)
--- NOTE | 2020-01-09 07:49 | NUR ---
RN OPENING NOTE Patient is resting in bed, A/O x4, showing no signs of acute distress or SOB, stable on RA. Patient has no complaints of pain at this time. CEASAR midline noted, clean and intact, flushing well. Patient is NPO due to scheduled procedure today at 1030. Bed is in lowest position, side rails x3 in upright position, call light is within reach and patient is aware of how to call for assistance when needed. Fall, safety and aspiration precautions enforced. Will continue with plan of care.
[2020-01-09 08:00] VITALS: BP 138/68
--- NOTE | 2020-01-09 08:30 | NUR ---
RN NOTE ] Patient has 3 episodes of N/V, unrelieved by zofran given at 0600. ASSURANCE ASSOCIATE informed, REGLAN 10MG IV QID PRN telephone order by Mariam KENNEDY. Order repeated back and carried out.
[2020-01-09] MEDS: METOCLOPRAMIDE HCL 10 MG/2 ML VIAL IV PRN ×2 (09:22→19:16)
--- NOTE | 2020-01-09 11:08 | NUR ---
RN NOTE Patent left for surgery.
[2020-01-09] MEDS ORDERED: BUPIVACAINE MPF 0.5% W/EPI INJ 30 ML VIAL ONE (11:12)
[2020-01-09] MEDS ORDERED: BUPIVACAINE 0.5 % PF 150 MG/30 ML VIAL ONE (11:12)
[2020-01-09] MEDS ORDERED: FAMOTIDINE/PF INJ 20 MG/2 ML VIAL IV ONE (11:23)
[2020-01-09] MEDS ORDERED: MIDAZOLAM HCL 2 MG/2ML VIAL ONE (11:23)
[2020-01-09] MEDS ORDERED: FENTANYL PF 250MCG/5ML AMPUL ONE (11:23)
[2020-01-09] MEDS ORDERED: HYDROMORPHONE INJ 2 MG/ML DISP.SYRIN ONE (12:22)
[2020-01-09 13:40] VITALS: BP 117/77
--- NOTE | 2020-01-09 13:40 | NUR ---
RN NOTE Patient back from surgery. A/O x4, showing no signs of acute distress. BP 113/77 HR 71 O2 98% on RA RR [address] Lopez, to resume pre-op orders and change to regular diet. Packed dressing noted in surgical site (right upper back) per MD, wound care team will come to change dressing on January 11 unless the dressing because extremely soaked, then it can be changed before then. Will continue to monitor.
[2020-01-09 16:00] VITALS: BP 130/88
--- NOTE | 2020-01-09 18:09 | NUR ---
RN CLOSING NOTE Patient is resting in bed, A/O x4, showing no signs of acute distress or SOB, stable on RA. Patient has no complaints of pain at this time. Left wrist @24g is running D51/2NS @75ml/hr, flushing well. All patient need met, all due medications given. Bed is in lowest position, side rails x3 in upright position, call light is within reach and patient is aware of how to call for assistance when needed. Fall, safety and aspiration precautions enforced. Will endorse to auto mechanics instructor.
--- NOTE | 2020-01-09 19:40 | NUR ---
RN OPENING NOTES RECEIVED REPORT FROM [facility]. FOUND Pt AWAKE, RESTING IN BED, WATCHING TV. NO S/S OF ACUTE DISTRESS OR SOB NOTED. NO C/O OF DISCOMFORT OR SEVERE PAIN AT THIS TIME. Pt IS A/OX4, VERBAL, ABLE TO MAKE NEEDS KNOWN. IV ACCESS ON LWRIST #24G, IVF D5 1/2NS @75ML/HR. SAFETY MEASURES IN PLACE. BED LOW, LOCKED, HOB ELEVATED, SIDE RAILS UP, CALL LIGHT AND BEDSIDE TABLE WITHIN REACH. WILL CONTINUE TO MONITOR Pt's CONDITION AND SAFETY THROUGHOUT THE NIGHT. Addendum: 01/09/20 at 2011 by MICAELA ADAMS RN S/P I & D DRAINAGE OF Rt UPPER BACK/SHOULDER ABSCESS TODAY 01/09/20. PER REPORT WOUND CARE TEAM WILL CHANGE SX DRESSING ON 01/11.
[2020-01-09 20:00] VITALS: BP 130/93
[2020-01-09 20:30] VITALS: BP 130/93
[2020-01-09] MEDS: ZOLPIDEM TARTRATE 5 MG TABLET PO PRN (23:04)
[2020-01-10] MEDS: HYDROMORPHONE HCL 2 MG TABLET PO PRN ×2 (00:33→08:07)
[2020-01-10] MEDS: CLINDAMYCIN 900 MG in IV D5W 50 ML IV SCH ×2 (04:31→14:37)
[2020-01-10] MEDS: ONDANSETRON HCL/PF 4 MG/2 ML VIAL IVP PRN (04:42)
[2020-01-10] MEDS: MORPHINE SULFATE INJ 2 MG/ML DISP.SYRIN IV PRN ×3 (04:46→14:46)
[2020-01-10] MEDS: IV D5/0.45 NACL 1,000 ML IV PRN (05:58)
[2020-01-10 06:40] LABS: BASOPHILS # (AUTO) 0.1 /CMM (0.0-0.2); BASOPHILS % (AUTO) 0.8 % (0.0-2.0); EOSINOPHILS % (AUTO) 1.5 % (0.0-6.0); HEMATOCRIT 38 % (33-45); HEMOGLOBIN 12.7 g/dL (11.5-14.8); LYMPHOCYTES # (AUTO) 3.9 /CMM (0.8-4.8); LYMPHOCYTES % (AUTO) 33.5 % (20.0-44.0); MEAN CORPUSCULAR HGB CONC 33 g/dl (31.0-36.0); MEAN CORPUSCULAR VOLUME 92 fL (82-100); MONOCYTES # (AUTO) 1.7 /CMM (0.1-1.30); MONOCYTES % (AUTO) 14.5 % (2.0-12.0); NEUTROPHILS # (AUTO) 5.7 /CMM (1.8-8.9); NEUTROPHILS % (AUTO) 49.7 % (43.0-81.0); PLATELET COUNT (AUTO) 390 /CMM (150-450); RED BLOOD CELL COUNT(AUTO) 4.12 MIL/uL (4.0-5.2); WHITE BLOOD COUNT (AUTO) 11.5 K/uL (4.3-11.0)
[2020-01-10 06:49] LABS: CALCIUM, SERUM 8.5 mg/dL (8.5-10.1); CREATININE 0.7 mg/dL (0.6-1.3); MAGNESIUM 1.9 mg/dL (1.8-2.4); PHOSPHORUS 3.5 mg/dL (2.5-4.9); POTASSIUM 3.6 mmol/L (3.5-5.1)
[2020-01-10] MEDS: METOCLOPRAMIDE HCL 10 MG/2 ML VIAL IV PRN ×2 (07:04→12:18)
--- NOTE | 2020-01-10 07:16 | NUR ---
RN CLOSING NOTES NO SIGNIFICANT CHANGES IN Pt's CONDITION. Pt REMAINED STABLE PER BASELINE. NO S/S OF ACUTE DISTRESS OR SOB NOTED DURING THE NIGHT. ALL NEEDS MET AND ATTENDED. SAFETY MEASURES IN PLACE. Pt IS RESTING COMFORTABLY IN BED. WILL ENDORSE TO DAYSHIFT RN FOR Pt's RIVER.
[2020-01-10 07:55] VITALS: BP 132/100
--- NOTE | 2020-01-10 08:00 | NUR ---
rn notes Patient refused breakfast because of nauseated, offered ice chips.
[2020-01-10 08:07] VITALS: BP 132/101
--- NOTE | 2020-01-10 08:07 | NUR ---
rn notes received patient in the bed a/o x4, patient post up for upper shoulder procedure,dressing intact. Patient was complaining of pain 8/10 per pain scale. Administered Dilaudid 4 mg po prn per patient request, v/s taken bp-132/100, p-70, r-18. patient a/o x4, no acute respiratory distress, room air. infusing D5 1/2 NS at 75 ml/hr intact on left wrist, DVT pump on. Patient able to turn and reposition self in the bed. Call light within to reach, safety precaution maintained all the time.
[2020-01-10] MEDS ORDERED: METO-295 PO (10:21)
[2020-01-10] MEDS ORDERED: ALLA266C2 TP (10:21)
[2020-01-10] MEDS ORDERED: RXVAN XX (10:24)
--- NOTE | 2020-01-10 10:27 | NUR ---
RN NOTES ADMINISTERED MORPHINE SULFATE 2 MG/ML IV PUSH FOR RIGHT SHOULDER PAIN 03/24 PER PATIENT REQUEST, V/S TAKEN BP 130/74, P-78. R-20, CONTINUED MONITORING.
[2020-01-10] MEDS ORDERED: FEE PK DOSING 1 MIN EA MC ONE (11:17)
[2020-01-10] MEDS ORDERED: VANCOMYCIN 1.25 GM in IV D5W 250 ML IV SCH (12:00)
--- NOTE | 2020-01-10 12:18 | NUR ---
RN NOTES ADMINISTERED REGLAN 10 MG/ML IV PUSH FOR NAUSEA.
--- NOTE | 2020-01-10 14:46 | NUR ---
RN NOTES ADMINISTERED MORPHINE SULFATE 2 MG/DL IV PUSH FOR RIGHT UPPER SHOULDER PAIN 03/24 PER PATIENT REQUEST.
[2020-01-10 16:00] VITALS: BP 137/82
--- NOTE | 2020-01-10 17:14 | NUR ---
HALVER MACHINE OPERATOR NOTES PATIENT DISCHARGE AT THIS TIME GOING BACK TO THE SNF. PATIENT A/O X3/4,NO ACUTE RESPIRATORY DISTRESS, V/S STABLE, ADMINISTERED NARCO 5/325 MG PO PRN FOR RIGHT UPPER SHOULDER PAIN. MED RECONCILIATION AND DISCHARGE ORDER REVIEWED AND EXPLAINED TO PATIENT . REPORT GIVEN SNF RN YVONNE. RN VERBALIZED UNDERSTANDING. midline is placed RIGHT UPPER ARM 2. continue 7 days of IV vanco, then DC midline after completion of abx 3. f/u with wound clinic and surgery if requested. PATIENT SIGN PAPERWORK, WILL FOLLOW SNF MAINTENANCE AND CUSTODIAN SUPERVISOR, AND WOUND NURSE. BELONGING WITH THE PATIENT. PATIENT INFORMATION SECURITY MANAGER BY AMBULANCE.
== END 2020-01-10 17:10 | DRG 571 ==
LOC: ER 20:30 → MED 21:53
PROVIDERS: ADMIT Student in an Organized Health Care Education/Training Program; ATTEND Registered Nurse
PROC: 05H633Z Insertion of Infusion Device into Left Subclavian Vein, Percutaneous Approach (ICD-10-PCS; 2020-01-08)
PROC: B547ZZA Ultrasonography of Left Subclavian Vein, Guidance (ICD-10-PCS; 2020-01-08)
PROC: 0JBD0ZZ Excision of Right Upper Arm Subcutaneous Tissue and Fascia, Open Approach (ICD-10-PCS; principal; 2020-01-09)
PROC: 05HY33Z Insertion of Infusion Device into Upper Vein, Percutaneous Approach (ICD-10-PCS; 2020-01-10)
DX: L03.113 Cellulitis of right upper limb (principal); I50.32 Chronic diastolic (congestive) heart failure; L02.413 Cutaneous abscess of right upper limb; I11.0 Hypertensive heart disease with heart failure; K21.9 Gastro-esophageal reflux disease without esophagitis; G40.909 Epilepsy, unspecified, not intractable, without status epilepticus; F20.9 Schizophrenia, unspecified; D64.9 Anemia, unspecified; F32.9 Major depressive disorder, single episode, unspecified; F41.9 Anxiety disorder, unspecified; G47.00 Insomnia, unspecified; J44.9 Chronic obstructive pulmonary disease, unspecified; Z79.899 Other long term (current) drug therapy; Z87.891 Personal history of nicotine dependence; M19.90 Unspecified osteoarthritis, unspecified site; Z96.641 Presence of right artificial hip joint; Z96.612 Presence of left artificial shoulder joint; D72.829 Elevated white blood cell count, unspecified
CPT/HCPCS: 36410; 36415; 71045-TC; 80048-TC; 80061-TC; 83735-TC; 84100-TC; 84443-TC; 85025-TC; 85730-TC; 87070-TC; 87081-TC; 87186-TC; A6253; A6403; A6407; G0378; J1170; J2250; J2270; J2405; J2704; J2765; J3010; J3370; J3490; J7042; J7060

== ENCOUNTER 2020-11-22 11:42 | Emergency (ER) | payer MEDICARE, OTHER ==
[~2020-11-22] VITALS: Ht 165.1 cm; Wt 90.7 kg
[~2020-11-22 11:42] MED LIST changes: +ALLA266C2 TP; -ASPI-1152 PO; -DICL100G16 TP; -DILT120T2 PO; -IBUP-1953 PO; +METO-295 PO; -MULT-439 PO; +POTA20TA83 PO; -PROM118S5 PO; +RXVAN XX
--- NOTE | 2020-11-22 11:42 | NUR ---
PT BIBRA [facility] FROM [facility] C/O WITNESSED SEIZURE EPISODE. PT IS AAOX3, NOT IN RESPIRATORY DISTRESS, HOOKED TO INSTALLMENT ACCOUNT CHECKER, KEPT RESTED AND COMFORTABLE. WILL CONTINUE TO MONITOR.
--- NOTE | 2020-11-22 11:45 | NUR ---
SEEN AND EXAMINED BY .
[2020-11-22 12:04] LABS: BASOPHILS # (AUTO) 0.1 /CMM (0.0-0.2); BASOPHILS % (AUTO) 0.8 % (0.0-2.0); EOSINOPHILS % (AUTO) 1.6 % (0.0-6.0); HEMATOCRIT 42 % (33-45); LYMPHOCYTES # (AUTO) 4.3 /CMM (0.8-4.8); LYMPHOCYTES % (AUTO) 44.7 % (20.0-44.0); MEAN CORPUSCULAR HGB CONC 33 g/dl (31.0-36.0); MEAN CORPUSCULAR VOLUME 91 fL (82-100); MONOCYTES # (AUTO) 1.3 /CMM (0.1-1.30); MONOCYTES % (AUTO) 13.9 % (2.0-12.0); NEUTROPHILS # (AUTO) 3.7 /CMM (1.8-8.9); PLATELET COUNT (AUTO) 332 /CMM (150-450); RED BLOOD CELL COUNT(AUTO) 4.58 MIL/uL (4.0-5.2); WHITE BLOOD COUNT (AUTO) 9.6 K/uL (4.3-11.0)
[2020-11-22 12:21] LABS: CALCIUM, SERUM 9.7 mg/dL (8.5-10.1); CREATININE 0.9 mg/dL (0.6-1.3); POTASSIUM 3.1 mmol/L (3.5-5.1)
--- NOTE | 2020-11-22 12:23 | NUR ---
PT IS BACK FROM THE CT SCAN.
[2020-11-22 12:26] LABS: ALBUMIN 3.8 g/dL (3.4-5.0); BILIRUBIN,DIRECT 0.1 mg/dL (0.0-0.2); BILIRUBIN,TOTAL 0.5 mg/dL (0.2-1.0); TOTAL PROTEIN, SERUM 8.1 g/dL (6.4-8.2)
[2020-11-22] MEDS ORDERED: LORAZEPAM 1 MG TABLET ONE (12:58)
[2020-11-22] MEDS ORDERED: POTASSIUM CHLORIDE 20 MEQ TAB.PRT.SR PO ONE ×2 (12:58→13:00)
[2020-11-22] MEDS ORDERED: LEVETIRACETAM (500MG) 500 MG in IV NS 0.9% 100 ML IV ONE (13:00)
[2020-11-22] MEDS ORDERED: LORAZEPAM 1 MG TABLET PO ONE (13:00)
[2020-11-22] MEDS ORDERED: LEVETIRACETAM (500MG) 500 MG in IV NS 0.9% 100 ML IV SCH (13:00)
--- NOTE | 2020-11-22 13:24 | NUR ---
CALLED [facility] ETA 45 MINS.
--- NOTE | 2020-11-22 14:05 | NUR ---
IV removed. Catheter intact and site benign. Pressure and 4x4 applied to site. No bleeding noted.
--- NOTE | 2020-11-22 14:16 | NUR ---
REPORT GIVEN TO EMS FOR PT TRANSFER TO [facility].
[2020-11-22 14:17] VITALS: BP 135/89
== END 2020-11-22 14:17 ==
LOC: ER 11:44
DX: G40.909 Epilepsy, unspecified, not intractable, without status epilepticus (principal); E87.6 Hypokalemia; R94.31 Abnormal electrocardiogram [ECG] [EKG]; I10 Essential (primary) hypertension; J44.9 Chronic obstructive pulmonary disease, unspecified; D64.9 Anemia, unspecified; M19.90 Unspecified osteoarthritis, unspecified site; M32.9 Systemic lupus erythematosus, unspecified; F17.200 Nicotine dependence, unspecified, uncomplicated; Z98.890 Other specified postprocedural states; Z88.0 Allergy status to penicillin; Z88.5 Allergy status to narcotic agent; Z79.899 Other long term (current) drug therapy
CPT/HCPCS: 36415; 70450; 71045; 80048; 80076; 83735; 84484; 85025; 93005; 96365; 99285; J1953; J7030

== ENCOUNTER 2021-09-07 14:09 | Emergency (ER) | payer MEDICARE, OTHER ==
[~2021-09-07] VITALS: Ht 165.1 cm; Wt 88.5 kg
--- NOTE | 2021-09-07 14:40 | NUR ---
[facility] C/O R HIP AND LEG PAIN AND WEAKNESS X 1 WEEK. AAOX4, BREATHING EVEN AND UNLABORED. NOT IN RESPIRATORY DISTRESS. ON MONITOR. GBP 98/69. WILL CONTINUE TO MONITOR.
--- NOTE | 2021-09-07 14:53 | NUR ---
XRAY AT BEDSIDE
[2021-09-07] MEDS ORDERED: OXYC-128 PO (16:01)
--- NOTE | 2021-09-07 16:07 | NUR ---
[facility] CALLED FOR TRANSPORT ETA 60 MINS PER ELVIRA.
[2021-09-07] MEDS ORDERED: oxyCODONE/APAP (5/325 MG) 1 UDTAB TABLET PO ONE (16:30)
[2021-09-07] MEDS ORDERED: oxyCODONE/APAP (5/325 MG) 1 UDTAB TABLET ONE (17:10)
--- NOTE | 2021-09-07 17:40 | NUR ---
Patient discharged to facility in stable condition. Written and verbal after care instructions given. Patient verbalizes understanding of instruction.
[2021-09-07 17:51] VITALS: BP 108/74
== END 2021-09-07 17:40 | disposition home or self-care (01) ==
LOC: ER 14:13
DX: M25.551 Pain in right hip (principal); I10 Essential (primary) hypertension; J44.9 Chronic obstructive pulmonary disease, unspecified; D64.9 Anemia, unspecified; M19.90 Unspecified osteoarthritis, unspecified site; M32.9 Systemic lupus erythematosus, unspecified; F17.200 Nicotine dependence, unspecified, uncomplicated; Z98.890 Other specified postprocedural states; Z88.0 Allergy status to penicillin; Z88.5 Allergy status to narcotic agent; Z79.899 Other long term (current) drug therapy
CPT/HCPCS: 73502; 73552; 73564-TC

== ENCOUNTER 2022-01-19 14:20 | Inpatient (IN) | payer MEDICARE, OTHER ==
[~2022-01-19] VITALS: Ht 165.1 cm; Wt 82.6 kg
[~2022-01-19 14:20] MED LIST changes: +OXYC-128 PO
--- NOTE | 2022-01-19 14:35 | NUR ---
RAD[facility] FOR WEAKNESS. " I SAT UP & GOT WEAK " -TRAUMA. PT ATTACHED TO MONITOR, VITALS ARE WITHIN NORMAL LIMITS, NO RESP DISTRESS NOTED ON ROOMA AIR. AWAITING MD LOPEZ.
--- NOTE | 2022-01-19 14:51 | NUR ---
FLORENCE Tejada AC 20G. LABS DRAWN AND SENT.
--- NOTE | 2022-01-19 15:42 | NUR ---
PT IS RESTING COMFORTABLY IN BED, VITALS ARE WITHIN NORMAL LIMITS.
[2022-01-19 15:48] LABS: BASOPHILS # (AUTO) 0.1 K/uL (0.0-0.2); BASOPHILS % (AUTO) 0.4 % (0.0-2.0); HEMATOCRIT 40 % (33-45); HEMOGLOBIN 13.3 g/dL (11.5-14.8); LYMPHOCYTES # (AUTO) 3.9 K/uL (0.8-4.8); LYMPHOCYTES % (AUTO) 20.7 % (20.0-44.0); MEAN CORPUSCULAR HGB CONC 34 g/dl (31.0-36.0); MEAN CORPUSCULAR VOLUME 89 fL (82-100); MONOCYTES # (AUTO) 2.1 K/uL (0.1-1.30); MONOCYTES % (AUTO) 11.3 % (2.0-12.0); NEUTROPHILS # (AUTO) 12.8 K/uL (1.8-8.9); NEUTROPHILS % (AUTO) 67.6 % (43.0-81.0); PLATELET COUNT (AUTO) 390 K/uL (150-450); RED BLOOD CELL COUNT(AUTO) 4.45 MIL/uL (4.0-5.2)
[2022-01-19] MEDS ORDERED: HYDROMORPHONE 1 MG/1 ML DISP.SYRIN ONE ×2 (15:53→18:10)
[2022-01-19] MEDS ORDERED: HYDROMORPHONE 1 MG/1 ML DISP.SYRIN IM ONE (16:00)
[2022-01-19] MEDS ORDERED: HYDROMORPHONE MDV 0.5 MG in IV D5W 50 ML IV PRN (16:00)
[2022-01-19 16:05] LABS: ALANINE AMINOTRANSFERASE 32 U/L (12-78); ALBUMIN 3.8 g/dL (3.4-5.0); ALKALINE PHOSPHATASE 103 U/L (46-116); ASPARTATE AMINOTRANSFERASE 37 U/L (15-37); BILIRUBIN,DIRECT 0.1 mg/dL (0.0-0.2); BILIRUBIN,TOTAL 0.6 mg/dL (0.2-1.0); CARBON DIOXIDE 36 mmol/L (21-32); CHLORIDE 94 mmol/L (98-107); CREATININE 0.9 mg/dL (0.6-1.3); GLUCOSE 103 mg/dL (74-106); SODIUM SERUM 140 mmol/L (136-145); TOTAL PROTEIN, SERUM 8.3 g/dL (6.4-8.2); UREA NITROGEN, BLOOD 17 mg/dL (7-18)
[2022-01-19 16:11] LABS: POTASSIUM 2.3 mmol/L (3.5-5.1)
[2022-01-19] MEDS ORDERED: GABA600T12 PO (16:19)
[2022-01-19] MEDS ORDERED: IBUP-1957 PO (16:19)
[2022-01-19] MEDS ORDERED: DICL100G34 TD (16:19)
[2022-01-19] MEDS ORDERED: TIZA-180 PO (16:19)
[2022-01-19] MEDS ORDERED: BUPR1FIL3 SL (16:19)
[2022-01-19] MEDS ORDERED: ACET-868 PO (16:19)
[2022-01-19] MEDS ORDERED: OXYC-128 PO (16:19)
[2022-01-19] MEDS ORDERED: HYDROMORPHONE 1 MG/1 ML DISP.SYRIN IV ONE ×2 (18:00→20:30)
[2022-01-19] MEDS ORDERED: POTASSIUM CHLORIDE 20 MEQ TAB.PRT.SR PO ONE (18:00)
--- NOTE | 2022-01-19 18:18 | NUR ---
URINE COLLECTED AND SENT
--- NOTE | 2022-01-19 19:20 | NUR ---
RECEIVED REPORT FROM RAMESH ROMEO FOR RIVER
[2022-01-19 19:30] LABS: BILIRUBIN,URINE NEGATIVE (NEGATIVE); COLOR,URINE YELLOW (YELLOW); LEUKOCYTE ESTERASE ,URINE SMALL (NEGATIVE); NITRITE, URINE NEGATIVE (NEGATIVE); PROTEIN,URINE NEGATIVE (NEGATIVE); UGLUCOSE NEGATIVE (NEGATIVE); UROBILINOGEN,URINE 0.2 EU/dL (0.2)
--- NOTE | 2022-01-19 19:41 | NUR ---
PT IN BED, STATES SHE HAS ANKLE PAIN 8/10 ON P/S. MD MADE AWARE. WILL CONTINUE TO MONITOR.
[2022-01-19 19:51] LABS: BACTERIA,URINE Few /HPF (None Seen); RBC,URINE 0-2 /HPF (0-2); SQUAMOUS EPITHELIAL CELL,UR Few /HPF (None Seen)
[2022-01-19] MEDS ORDERED: SULFAMETH/TRIMETH 800/160 MG 1 UDTAB TABLET PO ONE (20:00)
[2022-01-19] MEDS ORDERED: POTA10CA43 PO (20:46)
[2022-01-19] MEDS ORDERED: SULF1TAB48 PO (20:46)
--- NOTE | 2022-01-19 20:47 | NUR ---
LAB AT BEDSIDE
--- NOTE | 2022-01-19 21:53 | NUR ---
COVID ANTIGEN SWAB COLLECTED AND SENT TO LAB
[2022-01-19] MEDS ORDERED: POTASSIUM CHLORIDE 10 MEQ/50 ML PREMIXED IVPB FOR PERIPHERAL LINE IV ONE (22:00)
[2022-01-19] MEDS ORDERED: POTASSIUM CL. PREMIX PERIPHER. 50 ML ONE (22:10)
--- NOTE | 2022-01-19 23:36 | NUR ---
ROOM 323-2
[2022-01-19] MEDS ORDERED: IV PREMIX D5 1/2NS + KCL 1,000 ML IV PRN (23:45)
[2022-01-20] MEDS ORDERED: ONDANSETRON HCL/PF 4 MG/2 ML VIAL IVP PRN
[2022-01-20] MEDS ORDERED: ZOLPIDEM TARTRATE 5 MG TABLET PO PRN
[2022-01-20] MEDS ORDERED: MAGNESIUM HYDROXIDE 30 ML UDC PO PRN
[2022-01-20] MEDS ORDERED: MAG HYDROX/AL HYDROX/SIMETH 30 ML UDC PO PRN
[2022-01-20] MEDS ORDERED: Z GUARD REMEDY 4 OZ OINT TP PRN
[2022-01-20] MEDS ORDERED: ACETAMINOPHEN 325 MG TABLET PO PRN
--- NOTE | 2022-01-20 00:04 | NUR ---
MRSA SWAB COLLECTED AND SENT TO LAB. PATIENT'S BELONGINGS LIST DONE.
--- NOTE | 2022-01-20 00:35 | NUR ---
REPORT GIVEN TO AGUEDA RUSHING
[2022-01-20] MEDS ORDERED: DICLOFENAC TOPICAL 100 GM GEL..GM. TP PRN (01:30)
[2022-01-20] MEDS ORDERED: IBUPROFEN 800 MG TABLET PO PRN (01:30)
--- NOTE | 2022-01-20 01:38 | NUR ---
DIRECTOR LONG TERM CARE NOTES PT A/O X4 ABLE TO MAKE NEEDS KNOWN. PT REPORTING 10/10 PAIN ON A NUMERIC PAIN SCALE OF HER LEFT LEG PER PT SHE HAS HAD VARIOUS SURGERIES ON HER LEG THAT HAS LEFT HER WITH CHRONIC PAIN.PT UNABLE TO RECALL WHAT SURGERIES SHE HAS HAD IN THE PAST. PT NOTED WITH IV ACCESS ON THE LAC AND RAC 20G FLUSHING WELL. PT SKIN IS WARM AND DRY TO THE TOUCH. NO WOUNDS NOTED. PT ABLE TO USE BEDSIDE COMMODE NOTED WITH LEFT LOWER EXTREMITY WEAKNESS. PT ORIENTED TO UNIT AND ROOM CALL LIGHT WITHIN REACH. ALL NEEDS ATTENDED AT THIS TIME. WILL CONTINUE TO MONITOR.
[2022-01-20] MEDS ORDERED: LEVOFLOXACIN 500 MG /D5W 100ML 100 ML IV ONE (02:00)
[2022-01-20] MEDS ORDERED: LORAZEPAM 1 MG TABLET PO PRN (02:00)
[2022-01-20] MEDS: LEVOFLOXACIN 500 MG /D5W 100ML 500 MG in PREMIX 1 EA IV SCH (02:22)
[2022-01-20] MEDS: oxyCODONE/APAP (5/325 MG) 1 UDTAB TABLET PO PRN ×4 (02:27→23:00)
--- NOTE | 2022-01-20 02:27 | NUR ---
CREATIVE TECHNOLOGIST NOTES PRN PAIN MEDICATION FOR 10/10 PAIN TOLERATED WELL. WILL CONTINUE TO MONITOR.
[2022-01-20] MEDS ORDERED: IV PREMIX D5 1/2NS + KCL 1,000 ML IV ONE (03:05)
[2022-01-20 04:14] VITALS: BP 139/79
--- NOTE | 2022-01-20 05:50 | NUR ---
HOT DIE PICKER NOTES PT REFUSED LABS AT THIS TIME WILL TRY AGAIN LATER.
[2022-01-20] MEDS: IV PREMIX D5 1/2NS + KCL 1,000 ML IV PRN (05:51)
[2022-01-20] MEDS ORDERED: IBUPROFEN 400 MG TABLET PO PRN (07:00)
--- NOTE | 2022-01-20 07:07 | NUR ---
HOBBIES AND CRAFTS SALES REPRESENTATIVE NOTES PT A/O X4 ABLE TO MAKE NEEDS KNOWN. PT NOTED WITH IV ACCESS ON THE LAC AND RAC 20G FLUSHING WELL. PT RUNNING D5 1/2 NS + KCL 40 MEQ @ 75 ML/HR. ALL NEEDS ATTENDED AT THIS TIME. WILL ENDORSE CARE.
--- NOTE | 2022-01-20 07:25 | NUR ---
BENCH MOLDER OPENING NOTES RECEIVED PATIENT IN BED AWAKE, A/O X4. ON RA WITH NO S/SX OF RESP DISTRESS NOTED. IV ACCESS ON THE LAC AND RAC G#20 BOTH INTACT AND PATENT WITH D5 1/2 NS + KCL 40 MEQ RUNNING @ 75 ML/HR. SAFETY PRECAUTIONS IN PLACE. WILL CONTINUE TO MONITOR PATIENT
[2022-01-20 08:00] VITALS: BP 122/70
[2022-01-20] MEDS: TIZANIDINE HCL 4 MG TABLET PO SCH ×2 (08:38→16:57)
[2022-01-20] MEDS: GABAPENTIN 300 MG CAPSULE PO SCH ×3 (08:38→16:57)
[2022-01-20] MEDS: LEVETIRACETAM (250 MG) 250 MG TABLET PO SCH ×2 (08:38→21:07)
[2022-01-20] MEDS: ENOXAPARIN SODIUM 40 MG/0.4 ML DISP.SYRIN SQ SCH (08:41)
[2022-01-20] MEDS ORDERED: Medication Not On Formulary EA (Buprenorphine Hcl/Naloxone Hcl (Suboxone 8 Mg-2 Mg Sl Fi SL SCH (09:00)
[2022-01-20] MEDS: PANTOPRAZOLE 40 MG TABLET.DR PO SCH (09:04)
[2022-01-20 09:15] LABS: BASOPHILS # (AUTO) 0.1 K/uL (0.0-0.2); BASOPHILS % (AUTO) 0.4 % (0.0-2.0); EOSINOPHILS % (AUTO) 0.3 % (0.0-6.0); HEMATOCRIT 38 % (33-45); HEMOGLOBIN 12.8 g/dL (11.5-14.8); LYMPHOCYTES # (AUTO) 2.4 K/uL (0.8-4.8); LYMPHOCYTES % (AUTO) 18.9 % (20.0-44.0); MEAN CORPUSCULAR HGB CONC 34 g/dl (31.0-36.0); MEAN CORPUSCULAR VOLUME 91 fL (82-100); MONOCYTES # (AUTO) 1.5 K/uL (0.1-1.30); MONOCYTES % (AUTO) 11.7 % (2.0-12.0); NEUTROPHILS # (AUTO) 8.6 K/uL (1.8-8.9); NEUTROPHILS % (AUTO) 68.7 % (43.0-81.0); PLATELET COUNT (AUTO) 357 K/uL (150-450); WHITE BLOOD COUNT (AUTO) 12.5 K/uL (4.3-11.0)
[2022-01-20 09:30] LABS: CALCIUM, SERUM 9.1 mg/dL (8.5-10.1); CREATININE 0.6 mg/dL (0.6-1.3); MAGNESIUM 2.1 mg/dL (1.8-2.4); PHOSPHORUS 2.2 mg/dL (2.5-4.9)
[2022-01-20 10:54] LABS: THYROID STIMULATING HORMONE 1.177 uIU/mL (0.358-3.74)
--- NOTE | 2022-01-20 11:00 | NUR ---
RN NOTES PIV ACCESS INFILTRATED AND REMOVED.
--- NOTE | 2022-01-20 15:00 | NUR ---
RN NOTES R UA MIDLINE INSERTED. INTACT AND PATENT.
--- NOTE | 2022-01-20 18:51 | NUR ---
RN NOTES PATIENT RESTING IN BED, AWAKE WATCHING TV AT THIS TIME. NO COMPLAINTS VERBALIZED. MIDLINE INSERTION TODAY R UA, INTACT AND PATENT. D5 1/2 NS WITH 40 MEQ POTASSIUM PHOS RUNNING @ 75 ML/HR. SEEN BY PHYSICAL THERAPY, TOLERATED ACTIVITY WELL. SAFETY PRECAUTIONS IN PLACE. WILL ENDORSE TO MATCHER OFFBEARER NURSE FOR RIVER
--- NOTE | 2022-01-20 19:30 | NUR ---
RESEARCH MANUFACTURING OPERATOR OPENING RECEIVED PATIENT BED BED WITH EYES CLOSED. EASY TO AROUSE. A/OX4. TELE READING SB WITH 53 BPM. NO S/S OF APPARENT DISTRESS ON ROOM AIR. NO C/O PAIN AT THIS TIME. ABLE TO TOLERATE GOING TO BEDSIDE COMMODE. NEEDS ATTENDED. ENCOURAGED WITH THE USE OF CALL LIGHT SAFETY IN PLACE. IV D5 1/2 NS WITH 40 MEQ KCL RUNNING @75ML/HR. WILL CONTINUE WITH PATIENTS PLAN OF CARE.
[2022-01-20 20:00] VITALS: BP 102/63
[2022-01-20] MEDS: QUETIAPINE FUMARATE 25 MG TABLET PO SCH (21:07)
[2022-01-20] MEDS: BENZTROPINE MESYLATE (1 MG) 1 MG TABLET PO SCH (21:07)
[2022-01-21] VITALS: BP 99/62
[2022-01-21] MEDS: LEVOFLOXACIN 500 MG /D5W 100ML 500 MG in PREMIX 1 EA IV SCH (01:36)
[2022-01-21 04:00] VITALS: BP 112/61
[2022-01-21] MEDS: IV PREMIX D5 1/2NS + KCL 1,000 ML IV PRN (04:34)
--- NOTE | 2022-01-21 07:16 | NUR ---
METAL CONTROL WORKER CLOSING REPORT GIVEN TO OLE FOR CONTINUITY OF CARE. PATIENT'S NEEDS ATTENDED.
--- NOTE | 2022-01-21 07:20 | NUR ---
PRODUCTION LABORER OPENING RECEIVED PATIENT IN BED AWAKE. PATIENT IS A/OX4. ON ROOM AIR WITH EQUAL AND UNLABORED BREATHING WITH NO SIGNS OF DISTRESS NOTED. PATIENT ON TELE MONITOR READING SR WITH HR OF 60 BPM. NO COMPLAIN OF PAIN AT THIS TIME. WITH JASON MIDLINE WITH IVF OF D5 1/2 NS PLUS 40 MEQ KCL RUNNING AT 75 ML/HR INFUSING WELL. SAFETY MEASURES ENSURED WITH BED ON LOWEST LOCKED POSITION. SIDERAILS RAISED AND CALL LIGHT WITHIN REACH. WILL CONTINUE TO MONITOR.
[2022-01-21] MEDS: PANTOPRAZOLE 40 MG TABLET.DR PO SCH (07:57)
[2022-01-21] MEDS: oxyCODONE/APAP (5/325 MG) 1 UDTAB TABLET PO PRN ×3 (07:57→20:03)
[2022-01-21 08:10] VITALS: BP 128/78
[2022-01-21 08:40] LABS: BASOPHILS # (AUTO) 0.1 K/uL (0.0-0.2); BASOPHILS % (AUTO) 1.1 % (0.0-2.0); EOSINOPHILS % (AUTO) 1.3 % (0.0-6.0); HEMATOCRIT 35 % (33-45); HEMOGLOBIN 11.7 g/dL (11.5-14.8); LYMPHOCYTES % (AUTO) 34.8 % (20.0-44.0); MEAN CORPUSCULAR HGB CONC 34 g/dl (31.0-36.0); MEAN CORPUSCULAR VOLUME 91 fL (82-100); MONOCYTES # (AUTO) 1.1 K/uL (0.1-1.30); MONOCYTES % (AUTO) 12.5 % (2.0-12.0); NEUTROPHILS # (AUTO) 4.3 K/uL (1.8-8.9); NEUTROPHILS % (AUTO) 50.3 % (43.0-81.0); PLATELET COUNT (AUTO) 315 K/uL (150-450); RED BLOOD CELL COUNT(AUTO) 3.82 MIL/uL (4.0-5.2); WHITE BLOOD COUNT (AUTO) 8.5 K/uL (4.3-11.0)
[2022-01-21] MEDS: TIZANIDINE HCL 4 MG TABLET PO SCH ×2 (09:05→16:45)
[2022-01-21] MEDS: GABAPENTIN 300 MG CAPSULE PO SCH ×3 (09:06→16:44)
[2022-01-21] MEDS: ENOXAPARIN SODIUM 40 MG/0.4 ML DISP.SYRIN SQ SCH (09:07)
[2022-01-21 09:50] LABS: ALBUMIN 2.7 g/dL (3.4-5.0); BILIRUBIN,TOTAL 0.5 mg/dL (0.2-1.0); TOTAL PROTEIN, SERUM 6.6 g/dL (6.4-8.2)
[2022-01-21] MEDS: LEVETIRACETAM (250 MG) 250 MG TABLET PO SCH ×2 (09:52→21:01)
[2022-01-21 10:02] LABS: CALCIUM, SERUM 9.2 mg/dL (8.5-10.1); CREATININE 0.9 mg/dL (0.6-1.3); MAGNESIUM 1.9 mg/dL (1.8-2.4); PHOSPHORUS 2.5 mg/dL (2.5-4.9); POTASSIUM 3.1 mmol/L (3.5-5.1)
--- NOTE | 2022-01-21 10:10 | NUR ---
PHYSICAL THERAPY TECHNICIAN NOTE PATIENT SEEN BY DR. ZIMMER
[2022-01-21] MEDS ORDERED: POTASSIUM CHLORIDE 20 MEQ TAB.PRT.SR PO PRN (10:30)
[2022-01-21 13:07] VITALS: BP 84/44
[2022-01-21] MEDS: POTASSIUM CHLORIDE 20 MEQ TAB.PRT.SR PO SCH ×3 (14:15→16:44)
[2022-01-21 16:27] VITALS: BP 1/53
--- NOTE | 2022-01-21 18:26 | NUR ---
DIESEL INSTRUCTOR NOTE PATIENT SEEN BY DR. PERES WITH ORDERS MADE AND CARRIED OUT.
--- NOTE | 2022-01-21 18:38 | NUR ---
ORGAN TEACHER CLOSING NOTE PATIENT REMAINS IN BED AND AWAKE. PATIENT IS A/OX4. ON ROOM AIR WITH EQUAL AND UNLABORED BREATHING WITH NO SIGNS OF DISTRESS NOTED. CONTINUES ON TELE MONITOR. NO COMPLAIN OF PAIN AT THIS TIME. JASON MIDLINE REMAINS INTACT AND PATENT WITH CONTINUOUS IVF OF D5 1/2 NS PLUS 40 MEQ KCL @ 75 ML/HR, INFUSING WELL. SAFETY MEASURES ENSURED WITH BED ON LOWEST LOCKED POSITION. SIDE RAILS RAISED AND CALL LIGHT WITHIN REACH. WILL CONTINUE TO MONITOR.
--- NOTE | 2022-01-21 19:35 | NUR ---
RN NOTES RECEIVED PATIENT AWAKE ON BED, A/OX4, SB ON TELE MONITOR HR-54, PATIENT IS ASKING FOR PAIN MEDICATION, WILL CHECK IF IT'S DUE AD WILL CHECK PATIENT'S VITAL SIGN FIRST, EXPLAINED TO THE PATIENT AND SHE UNDERSTOOD, CALL [facility] WITHIN REACH, [id number], WILL CONTINUE TO MONITOR
[2022-01-21 20:00] VITALS: BP 112/69
--- NOTE | 2022-01-21 20:00 | NUR ---
RN NOTES COMPLAINED OF BILATERAL LEGS PAIN , PERCOCET 1 TAB PO GIVEN ORDERED, V/S STABLE
[2022-01-21] MEDS: QUETIAPINE FUMARATE 25 MG TABLET PO SCH (21:01)
[2022-01-21] MEDS: BENZTROPINE MESYLATE (1 MG) 1 MG TABLET PO SCH (21:01)
[2022-01-21] MEDS: Potassium Chloride 10 MEQ in IV D5W 1,000 ML IV PRN (21:02)
[2022-01-22] VITALS: BP 98/52
[2022-01-22] MEDS: oxyCODONE/APAP (5/325 MG) 1 UDTAB TABLET PO PRN ×3 (00:21→12:10)
--- NOTE | 2022-01-22 00:21 | NUR ---
RN NOTES COMPLAINED OF BILATERAL LOWER LEGS, PERCOCET 1 TAB PO GIVEN ORDERED, V/S STABLE
[2022-01-22] MEDS: LEVOFLOXACIN 500 MG /D5W 100ML 500 MG in PREMIX 1 EA IV SCH (01:57)
[2022-01-22 04:00] VITALS: BP 109/72
--- NOTE | 2022-01-22 06:00 | NUR ---
RN NOTES COMPLAINED OF BILATERAL LEG PAIN- PERCOCET 1 TAB PO GIVEN ORDERED, V/S STABLE
--- NOTE | 2022-01-22 06:26 | NUR ---
RN NOTES SLEEPING BUT AROUSABLE, DENIES PAIN AT THIS TIME NO SOB, MORNING CARE RENDERED, CALL LIGHT WITHIN REACH, HORACEUPX2, PT. NEEDS ATTENDED
--- NOTE | 2022-01-22 07:37 | NUR ---
SHEET METAL WORK FURNACE INSTALLER OPENING NOTES RECEIVED PATIENT AWAKE IN BED. PATIENT IS A/OX4. ON ROOM AIR . BREATHING EVEN AND UNLABORED .NO SIGNS OF DISTRESS NOTED. ON TELE MONITOR READING SR. NO PAIN NOTED AT THIS TIME. JASON MIDLINE REMAINS INTACT AND PATENT WITH CONTINUOUS IVF OF D5W WITH 10 MEQ OF POTASSIUM @ 75 ML/HR, INFUSING WELL. SAFETY MEASURES IN PLACE. BED ON LOWEST LOCKED POSITION. SIDE RAILS UP TIMES 2. CALL LIGHT AND TABLE WITHIN REACH. WILL CONTINUE TO MONITOR.
[2022-01-22] MEDS: PANTOPRAZOLE 40 MG TABLET.DR PO SCH (07:48)
[2022-01-22] MEDS: TIZANIDINE HCL 4 MG TABLET PO SCH ×2 (08:23→16:04)
[2022-01-22] MEDS: LEVETIRACETAM (250 MG) 250 MG TABLET PO SCH (08:24)
[2022-01-22] MEDS: GABAPENTIN 300 MG CAPSULE PO SCH ×3 (08:24→16:04)
[2022-01-22] MEDS: ENOXAPARIN SODIUM 40 MG/0.4 ML DISP.SYRIN SQ SCH (08:25)
[2022-01-22] MEDS: Potassium Chloride 10 MEQ in IV D5W 1,000 ML IV PRN (14:31)
--- NOTE | 2022-01-22 17:30 | NUR ---
COMPUTER PERIPHERAL EQUIPMENT OPERATOR NOTES DISCHARGE PATIENT IN STABLE CONDITION. VITAL SIGNS IN NORMAL RANGES. ALL THE BELONGINGS ACCOUNTED AND SIGNED FOR. DISCHARGE INSTRUCTIONS GIVEN TO THE PATIENT. PATIENT VERBALIZED UNDERSTANDING. MID LINE REMOVED. INTACT TIP NOTED. NO BLEEDING NOTED. COVERED WITH DRY DRESSING. ID BAND REMOVED. [facility] MTS HERE. PATIENT TRANSFERED TO ASSISTED LIVING. PATIENT LEFT HOSPITAL IN STABLE CONDITION AT 1730 PM. MD AND CHARGE NURSE AWARE OF THE DISCHARGE.
== END 2022-01-22 17:30 | DRG 641 ==
LOC: ER 14:27 → TELE1 22:52 → TELE 23:37
PROVIDERS: ADMIT Student in an Organized Health Care Education/Training Program
PROC: 05HD33Z Insertion of Infusion Device into Right Cephalic Vein, Percutaneous Approach (ICD-10-PCS; principal; 2022-01-20)
DX: E87.6 Hypokalemia (principal); N39.0 Urinary tract infection, site not specified; M32.9 Systemic lupus erythematosus, unspecified; K21.9 Gastro-esophageal reflux disease without esophagitis; M19.90 Unspecified osteoarthritis, unspecified site; J44.9 Chronic obstructive pulmonary disease, unspecified; F20.9 Schizophrenia, unspecified; I10 Essential (primary) hypertension; Z87.891 Personal history of nicotine dependence; T50.2X5A Adverse effect of carbonic-anhydrase inhibitors, benzothiadiazides and other diuretics, initial encounter; D64.9 Anemia, unspecified; R56.9 Unspecified convulsions; Z96.641 Presence of right artificial hip joint; Z79.899 Other long term (current) drug therapy; Z20.822 Contact with and (suspected) exposure to COVID-19; S99.911A Unspecified injury of right ankle, initial encounter; X50.1XXA Overexertion from prolonged static or awkward postures, initial encounter; Y92.092 Bedroom in other non-institutional residence as the place of occurrence of the external cause
CPT/HCPCS: 36410; 36415; 71045-TC; 73610-TC; 73630-TC; 80048-TC; 80053-TC; 80076-TC; 81001; 83735-TC; 84100-TC; 84132-TC; 84436-TC; 84443-TC; 84481; 84484-TC; 85025-TC; 87040-TC; 87081-TC; 87086-TC; 97116-TC; 97530-TC; A4216; C9803; G0378; J1170; J1650; J1956; J2405; J3480; J3490; J7040; J7060; J7070

== ENCOUNTER 2022-03-22 15:26 | Inpatient (IN) | payer MEDICARE, OTHER ==
[~2022-03-22] VITALS: Ht 165.1 cm; Wt 88.0 kg
[~2022-03-22 15:26] MED LIST changes: +ACET-868 PO; -ALLA266C2 TP; +BUPR1FIL3 SL; +DICL100G34 TD; +GABA600T12 PO; -HYDR-4354 PO; -HYDR4TAB57 PO; +IBUP-1957 PO; -IPRA3AMP23 IH; -MAGN400O6 PO; -METO-295 PO; -PANT40TA2 PO; +POTA10CA43 PO; -POTA20TA83 PO; -RXVAN XX; -SENN-261 PO; +SULF1TAB48 PO; +TIZA-180 PO; -ZOLP10TA6 PO
--- NOTE | 2022-03-22 15:35 | NUR ---
RECIVED PT 56 YRS FEMALE TRANSFER FROM SNF WITH ACTIVE SEIZURE AWAKE AND ALERT
[2022-03-22] MEDS ORDERED: IV NS 0.9% 500 ML BAG IV ONE (16:00)
--- NOTE | 2022-03-22 16:00 | NUR ---
SEEN BY DR. SO
--- NOTE | 2022-03-22 17:00 | NUR ---
TO CT SCAN OF HEAD
[2022-03-22 17:56] LABS: BASOPHILS # (AUTO) 0.1 K/uL (0.0-0.2); BASOPHILS % (AUTO) 0.8 % (0.0-2.0); HEMATOCRIT 37 % (33-45); HEMOGLOBIN 12.9 g/dL (11.5-14.8); LYMPHOCYTES # (AUTO) 4.2 K/uL (0.8-4.8); LYMPHOCYTES % (AUTO) 38.3 % (20.0-44.0); MEAN CORPUSCULAR HGB CONC 35 g/dl (31.0-36.0); MEAN CORPUSCULAR VOLUME 90 fL (82-100); MONOCYTES # (AUTO) 1.3 K/uL (0.1-1.30); MONOCYTES % (AUTO) 12.3 % (2.0-12.0); NEUTROPHILS # (AUTO) 5.2 K/uL (1.8-8.9); NEUTROPHILS % (AUTO) 47.6 % (43.0-81.0); PLATELET COUNT (AUTO) 320 K/uL (150-450); RED BLOOD CELL COUNT(AUTO) 4.14 MIL/uL (4.0-5.2); WHITE BLOOD COUNT (AUTO) 10.9 K/uL (4.3-11.0)
--- NOTE | 2022-03-22 18:00 | NUR ---
[facility] AND MED[facility] ADDVOCATE
--- NOTE | 2022-03-22 18:15 | NUR ---
IV CAME OUT UNABLE TO REINSRTED IV LINE AT THIS TIME
[2022-03-22 18:22] LABS: ALBUMIN 3.6 g/dL (3.4-5.0); BILIRUBIN,DIRECT 0.1 mg/dL (0.0-0.2); BILIRUBIN,TOTAL 0.3 mg/dL (0.2-1.0); CALCIUM, SERUM 9.1 mg/dL (8.5-10.1); CREATININE 0.8 mg/dL (0.6-1.3); TOTAL PROTEIN, SERUM 7.4 g/dL (6.4-8.2)
[2022-03-22 18:23] LABS: POTASSIUM 2.7 mmol/L (3.5-5.1)
--- NOTE | 2022-03-22 18:35 | NUR ---
DR. KURTZ AWRE UNBLE TO INSRTED IV LNIE CALLED FOR MIDLINE DONE
--- NOTE | 2022-03-22 18:40 | NUR ---
COVID SWAB SENT TO LAB
--- NOTE | 2022-03-22 19:04 | NUR ---
INSERTED ANGO CATHTER FR 18 ON RT UPPER ARM (MIDLINE )
--- NOTE | 2022-03-22 19:20 | NUR ---
RECEIVED REPORT FROM AGUEDA CARY. PATIENT ASSESSMENT DONE. PATIENT IS AAOX4 COMPLAINING OF HEADACHE. CAME FROM SNF. HAD HX OF SEIZURE. PATIENT HAS MIDLINE ON RIGHT UA G18. PATIENT IS ATTACHED TO MONITOR. VITALS RECHECKED
--- NOTE | 2022-03-22 19:26 | NUR ---
PAGED EPIC INTERNATIONAL MARKETING COORDINATOR
[2022-03-22] MEDS ORDERED: LORAZEPAM INJ 2 MG/ML VIAL IV PRN (20:00)
[2022-03-22] MEDS ORDERED: ACETAMINOPHEN 325 MG TABLET PO PRN (20:00)
[2022-03-22] MEDS ORDERED: ONDANSETRON HCL/PF 4 MG/2 ML VIAL IVP PRN (20:00)
[2022-03-22] MEDS ORDERED: MORPHINE SULFATE INJ 2 MG/ML DISP.SYRIN ONE (20:46)
[2022-03-22] MEDS: MORPHINE SULFATE INJ 2 MG/ML DISP.SYRIN IV PRN (20:51)
--- NOTE | 2022-03-22 20:55 | NUR ---
REPORT GIVEN TO AGUEDA PERRY
--- NOTE | 2022-03-22 20:56 | NUR ---
CALLED MEDICAL ADVOCATE [facility] [phone]. INFORMING HER PATIENT WILL BE ADMITTED TO [facility]
--- NOTE | 2022-03-22 20:57 | NUR ---
RN NOTE REPORT RECEIVED FROM PICK REMOVERAGUEDA CASTELLANOS
[2022-03-22] MEDS ORDERED: IBUPROFEN 400 MG TABLET PO PRN (21:00)
--- NOTE | 2022-03-22 21:10 | NUR ---
TRANSFERRED PATIENT TO [facility].
--- NOTE | 2022-03-22 21:11 | NUR ---
INITIAL NOTE PT ARRIVED TO UNIT, ABLE TO AMBULATE TO BED. PT IS A&O X4, CALM, COOPERATIVE. PT COMING IN FOR SEIZURES WITH SIGNIFICANT MEDICAL HISTORY INCLUDING: HTN, COPD, GERD, LUPUS, EPILEPSY, SCHIZOPHRENIA, DJD, AND ANEMIA; FORMER SMOKER AND ALCOHOL USER. PT ON RA WITH O2SAT OF 95%, NO S/S OF RESP DISTRESS, NO SOB OR COUGH, NON-LABORED AND EQUAL BREATHING; PT APPEARS COMFORTABLE. ATTACHED TO EXTERNAL MONITOR, SR WITH HR OF 60. PT NOTED TO BE AMBULATORY WITH STEADY GAIT. JASON MIDLINE INTACT AND PATENT, FLUSHES EASILY WITH NO RESISTANCE. BED IN LOWEST POSITION, CALL LIGHT WITHIN REACH, SIDE RAILS UP X2. WILL INITIATE PLAN OF CARE.
[2022-03-22 21:30] VITALS: BP 131/73
[2022-03-22] MEDS: QUETIAPINE FUMARATE 25 MG TABLET PO SCH (21:50)
[2022-03-22] MEDS: LEVETIRACETAM (500MG) 1,500 MG in IV NS 0.9% 100 ML IV SCH (21:50)
[2022-03-22] MEDS: BENZTROPINE MESYLATE (1 MG) 1 MG TABLET PO SCH (21:50)
[2022-03-22] MEDS: HEPARIN SODIUM, PORCINE 5000 UNITS/1 ML VIAL SQ SCH (21:53)
[2022-03-23] VITALS: BP 140/74
[2022-03-23] MEDS: MORPHINE SULFATE INJ 2 MG/ML DISP.SYRIN IV PRN ×4 (02:57→18:22)
--- NOTE | 2022-03-23 02:57 | NUR ---
RN NOTE PT REPORTS OF AN 8/10 HEADACHE THAT'S DESCRIBED THROBBING. PT ADMINISTERED MORPHINE 2 MG. WILL MONITOR FOR EFFECTIVENESS.
[2022-03-23 04:00] VITALS: BP 130/71
--- NOTE | 2022-03-23 06:39 | NUR ---
CURING FINISHER CLOSING NOTE PT REMAINS IN BED, ASLEEP BUT EASILY AROUSABLE, A&O X4, CALM, COOPERATIVE. REMAINS ON RA WITH O2SAT RANGING FROM 92%-96% THROUGHOUT THE NIGHT, NO S/S OF RESP DISTRESS, NO SOB OR COUGH, NON-LABORED AND EQUAL BREATHING. ATTACHED TO EXTERNAL MONITOR, SB-SR, HR GOT LOW 55. JASON MIDLINE INTACT AND PATENT, FLUSHES EASILY WITH NO RESISTANCE. ALL DUE MEDS ADMINISTERED DURING THE SHIFT. BED IN LOWEST POSITION, CALL LIGHT WITHIN REACH, SIDE RAILS UP X2. WILL ENDORSE TO DAYSHIFT NURSE TO CONTINUE CARE.
--- NOTE | 2022-03-23 07:32 | NUR ---
RN OPENING NOTE RECEIVED PATIENT A&O X4, CALM, COOPERATIVE. . PT ON RA , NO S/S OF RESP DISTRESS, NO SOB OR COUGH, NON-LABORED AND EQUAL BREATHING; PT APPEARS COMFORTABLE. ON EXTERNAL MONITOR, SR. PT NOTED TO BE AMBULATORY WITH STEADY GAIT. JASON MIDLINE INTACT AND PATENT, FLUSHES EASILY WITH NO RESISTANCE. BED IN LOWEST POSITION, CALL LIGHT WITHIN REACH, SIDE RAILS UP X2.
[2022-03-23 08:00] VITALS: BP 136/80
--- NOTE | 2022-03-23 08:00 | NUR ---
RN NOTE PATIENT STATED SHE DID NOT WANT BREAKFAST TRY PER PATIENT " I DO NOT EAT IN THE MORNING". PATIENT REMINDED THAT IF SHE FEELS HUNGRY BEFORE LUNCH SJE CAN REQUEST A SNACK
[2022-03-23] MEDS: FUROSEMIDE 40 MG TABLET PO SCH (08:24)
[2022-03-23] MEDS: GABAPENTIN 300 MG CAPSULE PO SCH ×3 (08:24→17:04)
[2022-03-23] MEDS: POTASSIUM CHLORIDE 20 MEQ TAB.PRT.SR PO SCH ×3 (08:24→18:21)
[2022-03-23] MEDS: HEPARIN SODIUM, PORCINE 5000 UNITS/1 ML VIAL SQ SCH ×2 (08:25→21:06)
[2022-03-23] MEDS: LEVETIRACETAM (500MG) 1,500 MG in IV NS 0.9% 100 ML IV SCH ×2 (09:20→21:05)
[2022-03-23 10:16] LABS: BASOPHILS # (AUTO) 0.1 K/uL (0.0-0.2); BASOPHILS % (AUTO) 0.8 % (0.0-2.0); HEMATOCRIT 39 % (33-45); LYMPHOCYTES # (AUTO) 2.5 K/uL (0.8-4.8); LYMPHOCYTES % (AUTO) 36.3 % (20.0-44.0); MEAN CORPUSCULAR HGB CONC 34 g/dl (31.0-36.0); MEAN CORPUSCULAR VOLUME 91 fL (82-100); MONOCYTES # (AUTO) 0.8 K/uL (0.1-1.30); MONOCYTES % (AUTO) 11.3 % (2.0-12.0); NEUTROPHILS # (AUTO) 3.5 K/uL (1.8-8.9); NEUTROPHILS % (AUTO) 50.6 % (43.0-81.0); PLATELET COUNT (AUTO) 343 K/uL (150-450); RED BLOOD CELL COUNT(AUTO) 4.28 MIL/uL (4.0-5.2)
[2022-03-23 10:58] LABS: ALBUMIN 3.4 g/dL (3.4-5.0); BILIRUBIN,TOTAL 0.6 mg/dL (0.2-1.0); CALCIUM, SERUM 9.1 mg/dL (8.5-10.1); CREATININE 0.7 mg/dL (0.6-1.3); MAGNESIUM 2.2 mg/dL (1.8-2.4); PHOSPHORUS 2.9 mg/dL (2.5-4.9); TOTAL PROTEIN, SERUM 7.1 g/dL (6.4-8.2)
--- NOTE | 2022-03-23 11:45 | NUR ---
RN NOTE INFORMED PROVIDER OF POTASSIUM LEVEL OF 2.7. PER PROVIDER HE WILL COME TO UNIT. NO FURTHER ACTION .
[2022-03-23 12:00] VITALS: BP 136/69
--- NOTE | 2022-03-23 14:54 | NUR ---
RN NOTE ATTEMPTED TO CONTACT FAMILY REGARDING HOME MEDICATION [place]. NO ANSWER REMINDED PATIENT TO ASK FAMILY IF THEY CONTACT HER.
[2022-03-23 16:00] VITALS: BP 131/84
--- NOTE | 2022-03-23 16:00 | NUR ---
RN NOTE PATIENT CARE TRANSFERRED TO RN, PATIENT IN STABLE CONDITION
--- NOTE | 2022-03-23 16:05 | NUR ---
RN NOTE RECEIVED REPORT FROM CHARLIE ROMEO FOR CONTINUITY OF CARE. PATIENT AWAKE, ALERT/ORIENTED X4, . PT ON ROOM AIR TOLERATING WELL. BREATHING UNLABORED. NO SOB OR ANY RESPIRATORY DISTRESS NOTED AT THE TIME. PT APPEARS COMFORTABLE. ALL SAFETY MEASURES IN PLACE. BED LOCKED IN LOWEST POSITION, CALL LIGHT WITHIN REACH, SIDE RAILS UP X2. ALL NEEDS ANTICIPATED.
[2022-03-23 16:37] LABS: BILIRUBIN,URINE NEGATIVE (NEGATIVE); COLOR,URINE YELLOW (YELLOW); LEUKOCYTE ESTERASE ,URINE SMALL (NEGATIVE); NITRITE, URINE NEGATIVE (NEGATIVE); PH,URINE 6.5 (5.0-8.0); PROTEIN,URINE NEGATIVE (NEGATIVE); UGLUCOSE NEGATIVE (NEGATIVE); UROBILINOGEN,URINE 0.2 EU/dL (0.2)
[2022-03-23 16:53] LABS: BACTERIA,URINE Rare /HPF (None Seen); RBC,URINE NONE SEEN /HPF (0-2); SQUAMOUS EPITHELIAL CELL,UR Moderate /HPF (None Seen); WBC,URINE 0-2 /HPF (0-3)
--- NOTE | 2022-03-23 18:17 | NUR ---
RN NOTE PATIENT REFUSED DINNER TRAY. INFORMED PATIENT SHE MAY ASK FOR A SNACK IF SHE FEELS HUNGRY BEFORE BED.
--- NOTE | 2022-03-23 18:56 | NUR ---
RN CLOSING NOTE NO SIGNIFICANT CHANGES ON PATIENT CONDITION DURING REMAINDER OF THE SHIFT. PATIENT AWAKE, ALERT/ORIENTED X4. REMAINS ON RA TOLERATING WELL. BREATHING UNLABORED. NO SOB OR ANY RESPIRATORY DISTRESS NOTED AT THE TIME. JASON MIDLINE INTACT AND PATENT, FLUSHES EASILY WITH NO RESISTANCE. ALL DUE MEDS GIVEN ORDERED. ALL NEEDS ANTICIPATED. BED IN LOWEST POSITION, CALL LIGHT WITHIN REACH, SIDE RAILS UP X2. WILL ENDORSE TO ELECTRON GUN INSPECTOR NURSE TO CONTINUE CARE.
--- NOTE | 2022-03-23 19:13 | NUR ---
RN OPENING NOTE PATIENT IN BED, AWAKE. PATIENT IS ABLE TO MAKE NEEDS KNOWN, A/O X 4. PATIENT IS CURRENTLY ON RA, NO SOB OR RESPIRATORY DISTRESS NOTED. PATIENT'S TELE MONITOR READS SB AT 57 BPM AT THIS TIME. PATIENT HAS A JASON MIDLINE 18 G, PATENT AND INTACT, SALINE LOCKED ONLY. PATIENT DOES NOT REPORT OF ANY PAIN AT THIS TIME. SAFETY MEASURES IN PLACE: BED LOCKED AND IN LOWEST POSITION, CALL LIGHT WITHIN REACH, SIDE RAILS UP. WILL MONITOR PATIENT CLOSELY.
[2022-03-23 20:00] VITALS: BP 134/71
[2022-03-23] MEDS: QUETIAPINE FUMARATE 25 MG TABLET PO SCH (21:05)
[2022-03-23] MEDS: BENZTROPINE MESYLATE (1 MG) 1 MG TABLET PO SCH (21:05)
[2022-03-24] VITALS: BP 117/64
[2022-03-24] MEDS: MORPHINE SULFATE INJ 2 MG/ML DISP.SYRIN IV PRN ×4 (02:57→21:32)
--- NOTE | 2022-03-24 02:57 | NUR ---
RN NOTE PATIENT GIVEN MORPHINE FOR HEADACHE ON 03/24. WILL REASSESS PAIN AT A LATER TIME.
[2022-03-24 04:00] VITALS: BP 113/63
--- NOTE | 2022-03-24 04:00 | NUR ---
RN NOTE PATIENT PUT ON 2 LPM VIA NC D/T O2 SAT BEING 91%, NO SOB OR DIFFICULTY BREATHING. O2 FLUCTUATES BETWEEN 93-95%
--- NOTE | 2022-03-24 06:53 | NUR ---
RN CLOSING NOTE PATIENT IN BED, EYES CLOSED, EASILY AWAKENED. PATIENT IS ABLE TO MAKE NEEDS KNOWN, A/O X 4. PATIENT IS CURRENTLY ON 2LPM SATTING 94-95%, NO SOB OR RESPIRATORY DISTRESS NOTED. PATIENT'S TELE MONITOR READS SR AT 60 BPM AT THIS TIME. PATIENT HAS A JASON MIDLINE 18 G, PATENT AND INTACT, SALINE LOCKED ONLY. PATIENT DOES NOT REPORT OF ANY PAIN AT THIS TIME. HEADACHE MANAGED WITH MORPHINE IV. SAFETY MEASURES IN PLACE: BED LOCKED AND IN LOWEST POSITION, CALL LIGHT WITHIN REACH, SIDE RAILS UP. ALL NEEDS MET AND ATTENDED. ALL ORDERS CARRIED OUT. WILL ENDORSE TO DAY SHIFT NURSE FOR RIVER.
--- NOTE | 2022-03-24 07:20 | NUR ---
RN OPENING NOTE PATIENT IN BED, EYES CLOSED, EASILY AWAKENED. PATIENT IS ABLE TO MAKE NEEDS KNOWN, A/O X 4. PATIENT IS CURRENTLY ON SUPPLEMENTAL OXYGEN VIA NASAL CANULA 2LPM SATTING 94-95%, NO SOB OR RESPIRATORY DISTRESS NOTED. PATIENT'S TELE MONITOR READS SR WITH HEART RATE IN THE 60S AT THIS TIME. PATIENT HAS A JASON MIDLINE 18 G, PATENT AND INTACT, SALINE LOCKED ONLY, FLUSHING EASILY WITHOUT RESISTANCE. SAFETY MEASURES IN PLACE: BED LOCKED AND IN LOWEST POSITION, CALL LIGHT WITHIN REACH, SIDE RAILS UP. WILL CONTINUE PLAN OF CARE AND ANTICIPATE NEEDS.
[2022-03-24 08:00] VITALS: BP 111/62
[2022-03-24] MEDS: GABAPENTIN 300 MG CAPSULE PO SCH ×3 (09:06→16:02)
[2022-03-24] MEDS: LEVETIRACETAM (500MG) 1,500 MG in IV NS 0.9% 100 ML IV SCH ×2 (09:06→21:32)
[2022-03-24] MEDS: POTASSIUM CHLORIDE 20 MEQ TAB.PRT.SR PO SCH (09:06)
[2022-03-24] MEDS: HEPARIN SODIUM, PORCINE 5000 UNITS/1 ML VIAL SQ SCH ×2 (09:07→21:30)
[2022-03-24 10:52] LABS: BASOPHILS % (AUTO) 0.4 % (0.0-2.0); EOSINOPHILS % (AUTO) 1.3 % (0.0-6.0); HEMATOCRIT 37 % (33-45); HEMOGLOBIN 12.3 g/dL (11.5-14.8); LYMPHOCYTES # (AUTO) 3.1 K/uL (0.8-4.8); LYMPHOCYTES % (AUTO) 30.4 % (20.0-44.0); MEAN CORPUSCULAR HGB CONC 33 g/dl (31.0-36.0); MEAN CORPUSCULAR VOLUME 92 fL (82-100); MONOCYTES # (AUTO) 1.1 K/uL (0.1-1.30); MONOCYTES % (AUTO) 10.5 % (2.0-12.0); NEUTROPHILS # (AUTO) 5.8 K/uL (1.8-8.9); NEUTROPHILS % (AUTO) 57.4 % (43.0-81.0); PLATELET COUNT (AUTO) 334 K/uL (150-450); RED BLOOD CELL COUNT(AUTO) 4.06 MIL/uL (4.0-5.2); WHITE BLOOD COUNT (AUTO) 10.1 K/uL (4.3-11.0)
[2022-03-24 11:00] LABS: CALCIUM, SERUM 8.6 mg/dL (8.5-10.1); CREATININE 0.9 mg/dL (0.6-1.3); POTASSIUM 3.5 mmol/L (3.5-5.1)
[2022-03-24] MEDS: FUROSEMIDE 40 MG TABLET PO SCH (11:51)
[2022-03-24 12:00] VITALS: BP 135/59
[2022-03-24] MEDS ORDERED: LACOSAMIDE 200 MG in IV NS 0.9% 100 ML IV ONE (12:30)
[2022-03-24 16:00] VITALS: BP 130/69
--- NOTE | 2022-03-24 18:48 | NUR ---
RN CLOSING NOTE PATIENT IN BED,. A/O X 4. PATIENT IS CURRENTLY ON SUPPLEMENTAL OXYGEN VIA NASAL CANULA 2LPM SATTING 94-95%, NO SOB OR RESPIRATORY DISTRESS NOTED. PATIENT'S TELE MONITOR READS SR WITH HEART RATE IN THE HIGH 60S AT THIS TIME. PATIENT HAS A JASON MIDLINE 18 G, PATENT AND INTACT, SALINE LOCKED ONLY, FLUSHING EASILY WITHOUT RESISTANCE. SAFETY MEASURES IN PLACE: BED LOCKED AND IN LOWEST POSITION, CALL LIGHT WITHIN REACH, SIDE RAILS UP. ALL DUE MEDICATIONS ADMINISTERED. WILL ENDORSE TO ONCOMING NIGHTSHIFT RN FOR CONTINUATION OF CARE.
[2022-03-24 20:00] VITALS: BP 124/74
[2022-03-24] MEDS: BENZTROPINE MESYLATE (1 MG) 1 MG TABLET PO SCH (21:32)
[2022-03-24] MEDS: QUETIAPINE FUMARATE 25 MG TABLET PO SCH (21:32)
[2022-03-24] MEDS ORDERED: LACOSAMIDE 100 MG in IV NS 0.9% 50 ML IV SCH (23:00)
[2022-03-25 01:30] VITALS: BP 113/75
[2022-03-25] MEDS: MORPHINE SULFATE INJ 2 MG/ML DISP.SYRIN IV PRN ×2 (02:33→08:28)
[2022-03-25 04:19] VITALS: BP 141/89
[2022-03-25] MEDS: ACETAMINOPHEN 325 MG TABLET PO PRN ×2 (04:41→10:39)
--- NOTE | 2022-03-25 07:13 | NUR ---
RN OPENING NOTE PATIENT IN BED,. A/O X 4. PATIENT IS CURRENTLY ON SUPPLEMENTAL OXYGEN VIA NASAL CANULA 2LPM SATTING 97%, NO SOB OR RESPIRATORY DISTRESS NOTED. PATIENT'S TELE MONITOR READS SR WITH HEART RATE IN THE 70S AT THIS TIME. PATIENT HAS A JASON MIDLINE 18 G, PATENT AND INTACT, SALINE LOCKED ONLY, FLUSHING EASILY WITHOUT RESISTANCE. SAFETY MEASURES IN PLACE: BED LOCKED AND IN LOWEST POSITION, CALL LIGHT WITHIN REACH, SIDE RAILS UP. SITTER AT THE BEDSIDE. WILL CONTINUE PLAN OF CARE AND ANTICIPATE NEEDS.
[2022-03-25 08:00] VITALS: BP 132/69
[2022-03-25] MEDS: FUROSEMIDE 40 MG TABLET PO SCH (08:28)
[2022-03-25] MEDS: GABAPENTIN 300 MG CAPSULE PO SCH ×2 (08:28→12:58)
[2022-03-25] MEDS: POTASSIUM CHLORIDE 20 MEQ TAB.PRT.SR PO SCH (08:28)
[2022-03-25] MEDS: LEVETIRACETAM (500MG) 1,500 MG in IV NS 0.9% 100 ML IV SCH (08:28)
[2022-03-25] MEDS: HEPARIN SODIUM, PORCINE 5000 UNITS/1 ML VIAL SQ SCH (08:32)
--- NOTE | 2022-03-25 10:39 | NUR ---
PATIENT REQUESTED TYLENOL FOR PAIN IN LEFT FOOT. WILL REASSESS IN ONE HOUR.
[2022-03-25] MEDS ORDERED: LACOSAMIDE 50 MG TABLET PO SCH (11:00)
[2022-03-25 12:00] VITALS: BP 133/70
[2022-03-25] MEDS ORDERED: LEVE250T2 PO (12:01)
[2022-03-25] MEDS ORDERED: LACO50TA2 PO (12:01)
[2022-03-25] MEDS ORDERED: LEVE1000 PO (12:03)
--- NOTE | 2022-03-25 13:54 | NUR ---
PATIENT HAS BEEN DISCHARGED BACK TO HER ASSISTED LIVING. IV ACCESS HAS BEEN DISCONTINUED, NO BLEEDING NOTED. HOSPITAL ID BAND REMOVED. BELONGINGS LIST SIGNED, ALL BELONGINGS ACCOUNTED FOR. DISCHARGE INSTRUCTIONS GIVEN TO AMBULANCE STAFF, DISCHARGE INSTRUCTIONS SIGNED BY AMBULANCE CREW. PATIENT LEFT HOSPITAL VIA GURNEY WERE SHE THEN LEFT IN PRIVATE AMBULANCE AND LEFT HOSPITAL GROUNDS IN STABLE CONDITION.
[2022-03-25] MEDS ORDERED: LEVETIRACETAM (250 MG) 250 MG TABLET PO SCH (21:00)
== END 2022-03-25 14:06 | DRG 101 ==
LOC: ER 15:31 → TELE1 20:23
PROVIDERS: ADMIT Internal Medicine; ATTEND Nurse Practitioner Acute Care
PROC: 05HB33Z Insertion of Infusion Device into Right Basilic Vein, Percutaneous Approach (ICD-10-PCS; principal; 2022-03-22)
DX: G40.901 Epilepsy, unspecified, not intractable, with status epilepticus (principal); J44.9 Chronic obstructive pulmonary disease, unspecified; I10 Essential (primary) hypertension; E87.6 Hypokalemia; Z88.0 Allergy status to penicillin; M19.90 Unspecified osteoarthritis, unspecified site; Z87.891 Personal history of nicotine dependence; Z79.899 Other long term (current) drug therapy; F20.9 Schizophrenia, unspecified; M32.9 Systemic lupus erythematosus, unspecified; F11.21 Opioid dependence, in remission; Z20.822 Contact with and (suspected) exposure to COVID-19
CPT/HCPCS: 36415; 70450-TC; 71045-TC; 80048-TC; 80053-TC; 80076-TC; 81001; 83605-TC; 83735-TC; 84100-TC; 85025-TC; 85730-TC; 87081-TC; 87086-TC; C9803; G0378; J1644; J1953; J2270; J7030; J7040; J7050

== ENCOUNTER 2023-04-16 19:17 | Emergency (ER) | payer MEDICARE, OTHER ==
[~2023-04-16] VITALS: Ht 165.1 cm; Wt 81.2 kg
[~2023-04-16 19:17] MED LIST changes: +LEVE1000 PO; -POTA10CA43 PO; -SULF1TAB48 PO
[2023-04-16] MEDS ORDERED: IBUPROFEN 400 MG TABLET PO ONE (21:30)
[2023-04-16] MEDS ORDERED: IBUPROFEN 400 MG TABLET ONE (21:31)
[2023-04-16 23:53] VITALS: BP 154/99; TEMP 98.2; O2SAT 96
== END 2023-04-16 23:54 | disposition home or self-care (01) ==
LOC: ER 19:46
DX: S50.02XA Contusion of left elbow, initial encounter (principal); S40.012A Contusion of left shoulder, initial encounter; S70.02XA Contusion of left hip, initial encounter; I10 Essential (primary) hypertension; K21.9 Gastro-esophageal reflux disease without esophagitis; F41.9 Anxiety disorder, unspecified; Z88.0 Allergy status to penicillin; D64.9 Anemia, unspecified; Z98.890 Other specified postprocedural states; F17.200 Nicotine dependence, unspecified, uncomplicated; Z79.899 Other long term (current) drug therapy; W18.39XA Other fall on same level, initial encounter; Y93.89 Activity, other specified; Y92.89 Other specified places as the place of occurrence of the external cause; Y99.8 Other external cause status
CPT/HCPCS: 73030-TC; 73080-TC; 73502

== ENCOUNTER 2024-05-03 20:20 | Emergency (ER) | payer MEDICARE, OTHER ==
[~2024-05-03] VITALS: Ht 172.7 cm; Wt 83.9 kg
[~2024-05-03 20:20] MED LIST changes: +ALBU6.7H9 IH; +DEXT1TAB PO; -DICL100G34 TD; +DICL100G34 TP; -FURO40TA5 PO; +LACO150T2 PO; -LEVE500T9 PO; +LORA-259 PO; -LORA0.5T PO; -QUET25TA PO; +QUET50TA PO
[2024-05-03] MEDS ORDERED: HYDROCODONE/APAP 5/325MG TABLET ONE (22:39)
[2024-05-03] MEDS: HYDROCODONE/APAP 5/325MG TABLET PO ONE (22:43)
[2024-05-03 22:55] VITALS: BP 122/63; TEMP 98.5; O2SAT 99
== END 2024-05-03 22:56 | disposition home or self-care (01) ==
LOC: ER 20:26
DX: S00.12XA Contusion of left eyelid and periocular area, initial encounter (principal); I10 Essential (primary) hypertension; K21.9 Gastro-esophageal reflux disease without esophagitis; F41.9 Anxiety disorder, unspecified; D64.9 Anemia, unspecified; F17.200 Nicotine dependence, unspecified, uncomplicated; Z79.52 Long term (current) use of systemic steroids; Z79.1 Long term (current) use of non-steroidal anti-inflammatories (NSAID); Z79.899 Other long term (current) drug therapy; Z88.0 Allergy status to penicillin; W18.39XA Other fall on same level, initial encounter; Y93.89 Activity, other specified; Y92.89 Other specified places as the place of occurrence of the external cause; Y99.8 Other external cause status
CPT/HCPCS: 70450-TC; 70486-TC; 72125-TC

== ENCOUNTER 2024-06-02 21:12 | Emergency (ER) | payer MEDICARE, OTHER ==
[~2024-06-02] VITALS: Ht 165.1 cm; Wt 63.5 kg
[2024-06-02 22:05] LABS: BASOPHILS # (AUTO) 0.1 K/uL (0.0-0.2); BASOPHILS % (AUTO) 0.7 % (0.0-2.0); EOSINOPHILS # (AUTO) 0.1 K/uL (0.0-0.7); EOSINOPHILS % (AUTO) 0.7 % (0.0-6.0); HEMATOCRIT 38 % (33-45); HEMOGLOBIN 12.8 g/dL (11.5-14.8); LYMPHOCYTES % (AUTO) 36.1 % (20.0-44.0); MEAN CORPUSCULAR HEMOGLOBIN 32 PG (26.0-33.0); MEAN CORPUSCULAR HGB CONC 34 g/dl (31.0-36.0); MEAN CORPUSCULAR VOLUME 95 fL (82-100); MONOCYTES % (AUTO) 11.8 % (2.0-12.0); NEUTROPHILS # (AUTO) 4.2 K/uL (1.8-8.9); NEUTROPHILS % (AUTO) 50.7 % (43.0-81.0); PLATELET COUNT (AUTO) 347 K/uL (150-450); RED BLOOD CELL COUNT(AUTO) 4.02 MIL/uL (4.0-5.2); RED CELL DISTRIBUTION WIDTH 13.3 % (11.5-15.0); WHITE BLOOD COUNT (AUTO) 8.2 K/uL (4.3-11.0)
[2024-06-02 22:18] LABS: CALCIUM, SERUM 9.3 mg/dL (8.5-10.1); CREATININE 0.7 mg/dL (0.6-1.3); POTASSIUM 4.3 mmol/L (3.5-5.1)
[2024-06-02 22:30] LABS: ALBUMIN 3.5 g/dL (3.4-5.0); BILIRUBIN,TOTAL 0.4 mg/dL (0.2-1.0); TOTAL PROTEIN, SERUM 6.7 g/dL (6.4-8.2)
[2024-06-03] MEDS: MORPHINE SULFATE INJ 2 MG/ML DISP.SYRIN IM ONE (06:30)
[2024-06-03] MEDS ORDERED: MORPHINE SULFATE INJ 2 MG/ML DISP.SYRIN ONE (06:42)
[2024-06-03 09:12] VITALS: BP 119/76; TEMP 98.1; O2SAT 98
== END 2024-06-03 09:13 ==
LOC: ER 21:24
DX: S02.40DA Maxillary fracture, left side, initial encounter for closed fracture (principal); S00.83XA Contusion of other part of head, initial encounter; F17.200 Nicotine dependence, unspecified, uncomplicated; F41.9 Anxiety disorder, unspecified; I10 Essential (primary) hypertension; K21.9 Gastro-esophageal reflux disease without esophagitis; R06.02 Shortness of breath; Z79.899 Other long term (current) drug therapy; Z88.0 Allergy status to penicillin; Z87.09 Personal history of other diseases of the respiratory system; Z87.39 Personal history of other diseases of the musculoskeletal system and connective tissue; W01.0XXA Fall on same level from slipping, tripping and stumbling without subsequent striking against object, initial encounter; Y93.89 Activity, other specified; Y92.89 Other specified places as the place of occurrence of the external cause; Y99.8 Other external cause status
CPT/HCPCS: 99285; 70450; 71045; 93005; 70486; 85025; 36415; 80053; 84484; 83880; 96372; J2270

== ENCOUNTER 2024-07-22 17:58 | Inpatient (IN) | payer MEDICARE, OTHER ==
[~2024-07-22] VITALS: Ht 165.1 cm; Wt 72.6 kg
[2024-07-22 19:14] LABS: BASOPHILS # (AUTO) 0.1 K/uL (0.0-0.2); BASOPHILS % (AUTO) 1.1 % (0.0-2.0); EOSINOPHILS # (AUTO) 0.1 K/uL (0.0-0.7); EOSINOPHILS % (AUTO) 0.9 % (0.0-6.0); HEMATOCRIT 44 % (33-45); HEMOGLOBIN 14.6 g/dL (11.5-14.8); LYMPHOCYTES # (AUTO) 3.6 K/uL (0.8-4.8); LYMPHOCYTES % (AUTO) 48.8 % (20.0-44.0); MEAN CORPUSCULAR HEMOGLOBIN 32 PG (26.0-33.0); MEAN CORPUSCULAR HGB CONC 33 g/dl (31.0-36.0); MEAN CORPUSCULAR VOLUME 96 fL (82-100); MONOCYTES # (AUTO) 0.7 K/uL (0.1-1.30); MONOCYTES % (AUTO) 9.6 % (2.0-12.0); NEUTROPHILS % (AUTO) 39.6 % (43.0-81.0); PLATELET COUNT (AUTO) 268 K/uL (150-450); RED BLOOD CELL COUNT(AUTO) 4.64 MIL/uL (4.0-5.2); WHITE BLOOD COUNT (AUTO) 7.5 K/uL (4.3-11.0)
[2024-07-22] MEDS ORDERED: LEVETIRACETAM (500MG) 500 MG/5 ML VIAL IV ONE (19:39)
[2024-07-22] MEDS: IV NS 0.9% 1,000 ML BAG IV ONE (19:40)
[2024-07-22] MEDS: LEVETIRACETAM (500MG) 1,000 MG in IV NS 0.9% 90 ML IV SCH (19:40)
[2024-07-22] MEDS ORDERED: ONDANSETRON HCL/PF 4 MG/2 ML VIAL IVP PRN (20:00)
[2024-07-22] MEDS ORDERED: MAG HYDROX/AL HYDROX/SIMETH 30 ML UDC PO PRN (20:00)
[2024-07-22] MEDS ORDERED: Z GUARD REMEDY 4 OZ OINT TP PRN (20:00)
[2024-07-22] MEDS ORDERED: ACETAMINOPHEN 325 MG TABLET PO PRN ×2 (20:00→23:00)
[2024-07-22] MEDS ORDERED: ZOLPIDEM TARTRATE 5 MG TABLET PO PRN (20:00)
[2024-07-22] MEDS ORDERED: MAGNESIUM HYDROXIDE 30 ML UDC PO PRN (20:00)
[2024-07-22 20:03] LABS: CALCIUM, SERUM 9.9 mg/dL (8.5-10.1); CREATININE 0.7 mg/dL (0.6-1.3); POTASSIUM 4.7 mmol/L (3.5-5.1)
[2024-07-22] MEDS ORDERED: ACETAMINOPHEN 325 MG TABLET ONE (20:10)
[2024-07-22] MEDS ORDERED: DEXTROSE 50%-WATER 50 ML DISP.SYRIN ONE (20:10)
[2024-07-22] MEDS: DEXTROSE 50%-WATER 50 ML DISP.SYRIN IVP ONE (20:17)
[2024-07-22] MEDS ORDERED: LISI20TA30 PO (20:58)
[2024-07-22] MEDS: MORPHINE SULFATE INJ 2 MG/ML DISP.SYRIN IV ONE (21:00)
[2024-07-22] MEDS: ONDANSETRON HCL/PF 4 MG/2 ML VIAL IVP ONE (21:00)
[2024-07-22 22:00] VITALS: BP 124/81; TEMP 97.9; O2SAT 95
[2024-07-22 22:59] VITALS: BP 124/81; TEMP 97.9; O2SAT 95
[2024-07-22] MEDS ORDERED: [UNRECOGNIZED DRUG - OTHER] PO PRN (23:00)
[2024-07-22] MEDS ORDERED: DEXTROMETHORPHAN HBR PO PRN (23:00)
[2024-07-22] MEDS ORDERED: CHLOR MAL PO PRN (23:00)
[2024-07-22] MEDS: IV 1/2NS 1000 ML 1,000 ML IV PRN (23:28)
[2024-07-22] MEDS: ENOXAPARIN SODIUM 40 MG/0.4 ML DISP.SYRIN SQ SCH (23:29)
[2024-07-22] MEDS ORDERED: ALBUTEROL FS 2.5 MG/3 ML VIAL.NEB IH PRN (23:30)
[2024-07-22] MEDS ORDERED: IBUPROFEN 400 MG TABLET PO PRN (23:30)
[2024-07-22 23:43] VITALS: BP 112/63; TEMP 97.5; O2SAT 97
[2024-07-22] MEDS: oxyCODONE/APAP (5/325 MG) 1 UDTAB TABLET PO PRN (23:51)
[2024-07-23] MEDS: GABAPENTIN 300 MG CAPSULE PO SCH (05:27)
[2024-07-23] MEDS ORDERED: ALBUTEROL FS 2.5 MG/3 ML VIAL.NEB NEB PRN (07:32)
[2024-07-23] MEDS ORDERED: ALPR0.255 PO (07:58)
[2024-07-23] MEDS ORDERED: PRIM50TA27 PO (07:58)
[2024-07-23] MEDS ORDERED: IBUP-1955 PO (07:58)
[2024-07-23] MEDS ORDERED: ZOLP5TAB8 PO (07:58)
[2024-07-23] MEDS ORDERED: LACO200T2 PO (07:58)
[2024-07-23] MEDS ORDERED: MAGN400O6 PO (07:58)
[2024-07-23] MEDS ORDERED: ONDA4TAB11 PO (07:58)
[2024-07-23] MEDS ORDERED: BUPR8TAB4 SL (07:58)
[2024-07-23 08:00] VITALS: BP 110/60; TEMP 98.2; O2SAT 98
[2024-07-23] MEDS: LEVETIRACETAM (500MG) 500 MG in IV NS 0.9% 100 ML IV SCH (08:00)
[2024-07-23] MEDS: LACOSAMIDE 50 MG TABLET PO SCH (08:19)
[2024-07-23] MEDS: TIZANIDINE HCL 4 MG TABLET PO SCH (08:20)
[2024-07-23] MEDS: PANTOPRAZOLE 40 MG TABLET.DR PO SCH (08:20)
[2024-07-23] MEDS: LISINOPRIL (20MG) 20 MG TABLET PO SCH (08:20)
[2024-07-23] MEDS ORDERED: LEVETIRACETAM (250 MG) 250 MG TABLET PO SCH (09:00)
[2024-07-23] MEDS ORDERED: Medication Not On Formulary EA (Buprenorphine Hcl/Naloxone Hcl (Suboxone 8 Mg-2 Mg Sl Fi SL SCH (09:00)
[2024-07-23 10:12] LABS: BASOPHILS # (AUTO) 0.1 K/uL (0.0-0.2); BASOPHILS % (AUTO) 2.4 % (0.0-2.0); EOSINOPHILS # (AUTO) 0.1 K/uL (0.0-0.7); EOSINOPHILS % (AUTO) 1.5 % (0.0-6.0); HEMATOCRIT 38 % (33-45); HEMOGLOBIN 12.6 g/dL (11.5-14.8); LYMPHOCYTES # (AUTO) 1.9 K/uL (0.8-4.8); LYMPHOCYTES % (AUTO) 39.3 % (20.0-44.0); MEAN CORPUSCULAR HEMOGLOBIN 32 PG (26.0-33.0); MEAN CORPUSCULAR HGB CONC 34 g/dl (31.0-36.0); MEAN CORPUSCULAR VOLUME 94 fL (82-100); MONOCYTES # (AUTO) 0.6 K/uL (0.1-1.30); MONOCYTES % (AUTO) 11.6 % (2.0-12.0); NEUTROPHILS # (AUTO) 2.2 K/uL (1.8-8.9); NEUTROPHILS % (AUTO) 45.2 % (43.0-81.0); PLATELET COUNT (AUTO) 256 K/uL (150-450); RED BLOOD CELL COUNT(AUTO) 3.99 MIL/uL (4.0-5.2); RED CELL DISTRIBUTION WIDTH 12.5 % (11.5-15.0)
[2024-07-23 10:32] LABS: CALCIUM, SERUM 8.6 mg/dL (8.5-10.1); CREATININE 0.8 mg/dL (0.6-1.3); MAGNESIUM 2.1 mg/dL (1.8-2.4); PHOSPHORUS 3.7 mg/dL (2.5-4.9); POTASSIUM 4.7 mmol/L (3.5-5.1)
[2024-07-23 10:45] LABS: THYROID STIMULATING HORMONE 1.37 uIU/mL (0.358-3.74)
[2024-07-23 12:00] VITALS: BP 94/62; TEMP 99.1; O2SAT 96
[2024-07-23] MEDS: LEVETIRACETAM (250 MG) 250 MG TABLET PO SCH (12:19)
[2024-07-23] MEDS: oxyCODONE/APAP (5/325 MG) 1 UDTAB TABLET PO ONE (14:46)
[2024-07-23 16:00] VITALS: BP 94/60; TEMP 98.4; O2SAT 98
[2024-07-23] MEDS: LORAZEPAM 1 MG TABLET PO PRN (17:18)
[2024-07-23 20:00] VITALS: BP 90/60; TEMP 98.2; O2SAT 96
[2024-07-23] MEDS: QUETIAPINE FUMARATE 25 MG TABLET PO SCH (22:31)
[2024-07-23] MEDS: BENZTROPINE MESYLATE (1 MG) 1 MG TABLET PO SCH (22:31)
[2024-07-24] VITALS (7 sets, daily range): BP systolic 90–138; BP diastolic 45–83; TEMP 97.5–99.3; O2SAT 95–98
[2024-07-25 08:00] VITALS: BP 109/74; TEMP 98.4; O2SAT 95
[2024-07-25 09:00] VITALS: BP 109/74
[2024-07-25] MEDS ORDERED: ALPRAZOLAM 0.25 MG TABLET PO PRN (09:00)
[2024-07-25] MEDS ORDERED: LEVE100023 PO (09:52)
[2024-07-25] MEDS ORDERED: Quetiapine Fumarate PO (09:52)
[2024-07-25 10:10] LABS: BASOPHILS # (AUTO) 0.1 K/uL (0.0-0.2); BASOPHILS % (AUTO) 1.3 % (0.0-2.0); EOSINOPHILS # (AUTO) 0.1 K/uL (0.0-0.7); EOSINOPHILS % (AUTO) 1.9 % (0.0-6.0); HEMATOCRIT 37 % (33-45); HEMOGLOBIN 12.4 g/dL (11.5-14.8); LYMPHOCYTES # (AUTO) 2.5 K/uL (0.8-4.8); LYMPHOCYTES % (AUTO) 46.4 % (20.0-44.0); MEAN CORPUSCULAR HEMOGLOBIN 31 PG (26.0-33.0); MEAN CORPUSCULAR HGB CONC 33 g/dl (31.0-36.0); MEAN CORPUSCULAR VOLUME 94 fL (82-100); MONOCYTES # (AUTO) 0.7 K/uL (0.1-1.30); MONOCYTES % (AUTO) 13.6 % (2.0-12.0); NEUTROPHILS # (AUTO) 1.9 K/uL (1.8-8.9); NEUTROPHILS % (AUTO) 36.8 % (43.0-81.0); PLATELET COUNT (AUTO) 243 K/uL (150-450); RED BLOOD CELL COUNT(AUTO) 3.98 MIL/uL (4.0-5.2); RED CELL DISTRIBUTION WIDTH 12.6 % (11.5-15.0); WHITE BLOOD COUNT (AUTO) 5.3 K/uL (4.3-11.0)
[2024-07-25 10:23] LABS: CALCIUM, SERUM 8.8 mg/dL (8.5-10.1); CREATININE 0.8 mg/dL (0.6-1.3); POTASSIUM 4.5 mmol/L (3.5-5.1)
[2024-07-25] MEDS: BUPRENORPHINE HCL 8 MG TAB.SUBL SL SCH (10:38)
[2024-07-25] MEDS: LACOSAMIDE 50 MG TABLET PO SCH (13:43)
[2024-07-25] MEDS ORDERED: PRIMIDONE 50 MG TABLET PO SCH (22:00)
== END 2024-07-25 15:10 | disposition home health service (06) | DRG 101 ==
LOC: ER 18:04 → TELE 20:28 → MED 07-24 14:11
PROVIDERS: ADMIT Student in an Organized Health Care Education/Training Program; ATTEND Nurse Practitioner Acute Care
DX: G40.909 Epilepsy, unspecified, not intractable, without status epilepticus (principal); I10 Essential (primary) hypertension; K21.9 Gastro-esophageal reflux disease without esophagitis; M32.9 Systemic lupus erythematosus, unspecified; J44.9 Chronic obstructive pulmonary disease, unspecified; F41.9 Anxiety disorder, unspecified; F20.9 Schizophrenia, unspecified; Z79.899 Other long term (current) drug therapy; Z91.199 Patient's noncompliance with other medical treatment and regimen due to unspecified reason; F29 Unspecified psychosis not due to a substance or known physiological condition; M19.90 Unspecified osteoarthritis, unspecified site; D64.9 Anemia, unspecified; Z88.0 Allergy status to penicillin
CPT/HCPCS: 36415; 70450-TC; 70486-TC; 80048-TC; 82962-TC; 83735-TC; 84100-TC; 84443-TC; 85025-TC; 87081-TC; 97112-TC; 97116-TC; 97530-TC; A4223; G0378; J1650; J1953; J2405; J3490; J7030